=== PATIENT | female | born 1980 | race Two or more races ===

== ENCOUNTER 2019-05-03 12:39 | Inpatient (IN) | payer MEDICAID ==
[~2019-05-03] VITALS: Ht 165.1 cm; Wt 143.7 kg
[~2019-05-03 12:39] MED LIST: ALPR2TAB2 PO; APIX2.5T PO; CARI-277 PO; DOCU100T15 PO; ENAL10TA PO; FURO1TAB33 PO; HYDR-3547 PO; MORP30TA PO; SIMV-8 PO; WARF6TAB PO
[2019-05-03] MEDS ORDERED: IPRATROPIUM BROM 0.5 MG/2.5ML INH SOL HHN ONE (13:30)
[2019-05-03] MEDS ORDERED: methylPREDNISolone SOD SUCC 125 MG/2 ML VL IV ONE (13:30)
[2019-05-03] MEDS ORDERED: ALBUTEROL SULF 2.5 MG/0.5ML(0.5%) NEB SOLN HHN ONE (13:30)
[2019-05-03 13:33] LABS: Basophils # (auto) 0 uL; Basophils % (auto) 0.5 % (0.0-2.0); Eosinophils # (auto) 0 uL; Hematocrit 36.3 % (36.0-46.0); Hemoglobin 11.9 g/dL (12.2-16.2); Lymphocytes # (auto) 0.8 uL; Lymphocytes % (auto) 13.8 % (10.0-50.0); Mean Corpuscular Hemoglobin 29.3 pg (28.0-32.0); Mean Corpuscular Hgb Conc. 32.8 g/dL (32.0-36.0); Mean Corpuscular Volume 89.3 fL (80.0-100.0); Monocytes # (auto) 0.4 uL; Monocytes % (auto) 7.2 % (0.0-12.0); Neutrophils # (auto) 4.6 uL; Neutrophils % (auto) 78.5 % (37.0-80.0); Nucleated Red Blood Cells % 0.1 %; Platelet Count (auto) 206 10^3/uL (140-450); Red Blood Cells 4.06 10^6/uL (4.0-5.20); Red Cell Distribution Width 15.1 % (11.8-14.3); White Blood Cell 5.9 10^3/uL (4.4-10.8)
[2019-05-03] MEDS ORDERED: BISA-4 (13:34)
[2019-05-03] MEDS ORDERED: DOCU1CAP31 (13:34)
[2019-05-03] MEDS ORDERED: ZOLP10TA6 (13:34)
[2019-05-03] MEDS ORDERED: HYDR-531 (13:34)
[2019-05-03] MEDS ORDERED: IBUP800T24 (13:34)
[2019-05-03] MEDS ORDERED: FLUT110A (13:34)
[2019-05-03] MEDS ORDERED: CITA-77 (13:34)
[2019-05-03] MEDS ORDERED: APIX5TAB (13:34)
[2019-05-03] MEDS ORDERED: BACL10TA (13:34)
[2019-05-03] MEDS ORDERED: ENAL10TA2 (13:34)
[2019-05-03] MEDS ORDERED: FUR20T (13:34)
[2019-05-03] MEDS ORDERED: MORP1TAB12 (13:34)
[2019-05-03 14:09] LABS: Albumin 2.9 g/dL (3.4-5.0); Calcium 8.1 mg/dL (8.5-10.1); Potassium 3.6 mmol/L (3.5-5.1)
[2019-05-03 14:14] LABS: BUN/Creatinine Ratio 13.5; Bilirubin, Total 0.3 mg/dL (0.2-1.0); Total Protein 7.4 g/dL (6.4-8.2)
[2019-05-03] MEDS ORDERED: cefTRIAXone 1GM/50ML D5W 50 ML IV ONE (14:15)
[2019-05-03] MEDS: MAGNESIUM SULFATE 1GM/100ML 100 ML IV SCH ×2 (14:29→15:25)
[2019-05-03] MEDS ORDERED: FUROSEMIDE 40 MG/4 ML VIAL IV ONE (16:00)
[2019-05-03] MEDS ORDERED: NITROGLYCERIN 0.4 MG SL TAB SL PRN (17:00)
[2019-05-03] MEDS ORDERED: MORPHINE SULF INJ 2 MG/ML SYRINGE 1ML IV PRN (17:00)
[2019-05-03] MEDS ORDERED: HYDROcodone-ACET 10/325MG TAB PO PRN (17:00)
--- NOTE | 2019-05-03 18:05 | NUR ---
Telemetry admit from ER AVERY BARRON admitted to Telemetry unit after SBAR received. Patient oriented to primary RN, unit, room, bed, and unit policies regarding patient care and visiting hours. Patient now on continuous telemetry monitoring, tele box # 85 and telemetry reading on arrival to unit is sinus rhythm 91. Patient placed on bedside oxygen, weighed by bedscale and encouraged to call if they need something. All questions and concerns addressed, patient verbalized understanding.
--- NOTE | 2019-05-03 18:35 | NUR ---
Pain Patient complained of generalized body pain. Stated that her pain level is at 11. Patient stated that norco does not help her pain and is requesting IV morphine. States she takes morphine at home. Informed patient that she is having shortness of breath, with saturation at 97 on 10L of oxygen. Informed her that IV morphine can compromise her breathing more. Patient verbalize understanding.
[2019-05-03 18:36] VITALS: BP 107/74
[2019-05-03] MEDS: HYDROcodone-ACET 10/325MG TAB PO PRN (18:45)
--- NOTE | 2019-05-03 19:30 | NUR ---
Opening Shift Note Assumed care of patient, awake and alert. No S/S of distress/SOB or pain. Instructed on POC and to call for assist PRN, will continue to monitor for changes Q1hr and PRN.
[2019-05-03] MEDS: CARVEDILOL 3.125 MG TAB PO SCH ×2 (21:56→22:21)
[2019-05-03 22:00] VITALS: BP 121/58
--- NOTE | 2019-05-03 22:04 | NUR ---
PATIENT COMPLAINING OF CHEST TIGHTNESS AND DYSPNEA. HAD RT ASSESS PATIENT. PATIENT HAS FINE CRACKLES AND IS CURRENTLY ON SIMPLE MASK AT 10L. PATIENT RESPIRATIONS ARE 24 AND SHALLOW. RT SUGGESTING PRN BREATHING TREATMENT. WILL PAGE HOSPITALIST.
[2019-05-03] MEDS: APIXABAN 5 MG TAB PO SCH (22:21)
[2019-05-03] MEDS ORDERED: ALBUTEROL SULF 2.5 MG/0.5ML(0.5%) NEB SOLN NEB PRN (22:45)
--- NOTE | 2019-05-03 23:10 | NUR ---
Report given to KAYLYNN Elder.
--- NOTE | 2019-05-03 23:15 | NUR ---
Received report from KAYLYNN Olivarez. Assumed care of patient.
[2019-05-03] MEDS: BACLOFEN 10 MG TAB PO PRN (23:46)
[2019-05-04] VITALS (7 sets, daily range): BP systolic 101–115; BP diastolic 50–75
[2019-05-04] MEDS: HYDROcodone-ACET 10/325MG TAB PO PRN ×3 (03:10→20:12)
[2019-05-04] MEDS: FUROSEMIDE 40 MG/4 ML VIAL IV SCH ×2 (06:06→18:00)
[2019-05-04 06:32] LABS: Basophils # (auto) 0 uL; Basophils % (auto) 0.3 % (0.0-2.0); Eosinophils # (auto) 0 uL; Hematocrit 36.5 % (36.0-46.0); Hemoglobin 11.9 g/dL (12.2-16.2); Lymphocytes # (auto) 0.9 uL; Lymphocytes % (auto) 16.2 % (10.0-50.0); Mean Corpuscular Hemoglobin 29.3 pg (28.0-32.0); Mean Corpuscular Hgb Conc. 32.5 g/dL (32.0-36.0); Mean Corpuscular Volume 90.3 fL (80.0-100.0); Monocytes # (auto) 0.4 uL; Monocytes % (auto) 7.6 % (0.0-12.0); Neutrophils # (auto) 4.1 uL; Neutrophils % (auto) 75.9 % (37.0-80.0); Nucleated Red Blood Cells % 0.8 %; Platelet Count (auto) 217 10^3/uL (140-450); Red Blood Cells 4.04 10^6/uL (4.0-5.20); Red Cell Distribution Width 15.5 % (11.8-14.3); White Blood Cell 5.4 10^3/uL (4.4-10.8)
--- NOTE | 2019-05-04 06:52 | NUR ---
Closing note: Patient resting in bed with breath even and unlabored. No s/s of distress SOB noted. Patient on 10 Liters oxygen via mask. Will endorse care to day shift nurse.
--- NOTE | 2019-05-04 07:00 | NUR ---
Opening Shift Note Received report on the patient. Awake lying in bed. Patient shows no signs of distress at this time. Discussed the plan of care with the patient. Bed in lowest position, side rails up x2, and the call light is within reach. Will continue to monitor.
[2019-05-04 07:51] LABS: Albumin 2.9 g/dL (3.4-5.0); BUN/Creatinine Ratio 20.6; Bilirubin, Total 0.2 mg/dL (0.2-1.0); Calcium 8.5 mg/dL (8.5-10.1); Magnesium 2.2 mg/dL (1.6-2.6); Potassium 4.9 mmol/L (3.5-5.1); Total Protein 7.5 g/dL (6.4-8.2)
[2019-05-04] MEDS ORDERED: IOHEXOL 350 MG/ML 100ML IJ ONE (10:36)
[2019-05-04] MEDS: APIXABAN 5 MG TAB PO SCH ×2 (11:35→22:29)
[2019-05-04] MEDS: ENALAPRIL MALEATE 10 MG TAB PO SCH (11:36)
[2019-05-04] MEDS: CARVEDILOL 3.125 MG TAB PO SCH ×2 (11:36→18:00)
--- NOTE | 2019-05-04 13:50 | NUR ---
Pulmonary [place] Dr. Rivera called to let me know that the patient has a PE on the right side. Called Dr. Ely and left a message. Addendum: 05/04/19 at 1427 by MATTHIAS CERVANTES RN RN Pleural Effusion Dr. Rivera called to let me know that the patient has a PE on the right side. Called Dr. Ely and left a message.
--- NOTE | 2019-05-04 14:27 | NUR ---
Pleural Effusion Dr. Rivera called to let me know that the patient has a PE on the right side. Called Dr. Ely and left a message.
[2019-05-04] MEDS ORDERED: BUDESONIDE (INHALATION) 0.5 MG/2 ML NEB NEB ONE (18:00)
[2019-05-04] MEDS: ALBUTEROL SULF 2.5 MG/0.5ML(0.5%) NEB SOLN NEB SCH ×2 (19:27→22:22)
[2019-05-04] MEDS: IPRATROPIUM BROM 0.5 MG/2.5ML INH SOL NEB SCH ×2 (19:28→22:22)
--- NOTE | 2019-05-04 19:35 | NUR ---
Opening Shift Note Assumed care of patient, awake and alert. No S/S of distress/SOB noted. Instructed on POC and to call for assist PRN. Bed in lowest position, side rails up x2, and the call light is within reach. Instructed to use bed side commode and leave oxygen on.
[2019-05-04 21:00] LABS: Urine WBC None Seen /hpf (0 - 5)
[2019-05-04 21:11] LABS: Urine Bacteria NONE SEEN /hpf (None Seen); Urine Blood 3+ /uL (Negative)
[2019-05-04 21:12] LABS: Urine Specific Gravity > 1.050 (1.001-1.035)
[2019-05-04] MEDS: BUDESONIDE (INHALATION) 0.5 MG/2 ML NEB NEB SCH (22:21)
[2019-05-04] MEDS: methylPREDNISolone SOD SUCC 125 MG/2 ML VL IV SCH (22:29)
[2019-05-04] MEDS: BACLOFEN 10 MG TAB PO PRN (22:29)
[2019-05-05] MEDS: IPRATROPIUM BROM 0.5 MG/2.5ML INH SOL NEB SCH ×3 (02:17→10:17)
[2019-05-05] MEDS: ALBUTEROL SULF 2.5 MG/0.5ML(0.5%) NEB SOLN NEB SCH ×3 (02:17→10:17)
[2019-05-05 05:00] VITALS: BP 99/51
[2019-05-05 05:44] LABS: Basophils # (auto) 0 uL; Basophils % (auto) 0.2 % (0.0-2.0); Eosinophils # (auto) 0 uL; Eosinophils % (auto) 0.2 % (0.0-7.0); Hemoglobin 12.1 g/dL (12.2-16.2); Lymphocytes # (auto) 0.6 uL; Mean Corpuscular Hemoglobin 28.9 pg (28.0-32.0); Mean Corpuscular Hgb Conc. 31.9 g/dL (32.0-36.0); Mean Corpuscular Volume 90.8 fL (80.0-100.0); Monocytes # (auto) 0.2 uL; Monocytes % (auto) 3.7 % (0.0-12.0); Neutrophils # (auto) 5.6 uL; Neutrophils % (auto) 86.9 % (37.0-80.0); Nucleated Red Blood Cells % 0.1 %; Platelet Count (auto) 222 10^3/uL (140-450); Red Blood Cells 4.18 10^6/uL (4.0-5.20); Red Cell Distribution Width 15.9 % (11.8-14.3); White Blood Cell 6.4 10^3/uL (4.4-10.8)
[2019-05-05] MEDS: methylPREDNISolone SOD SUCC 125 MG/2 ML VL IV SCH (05:48)
[2019-05-05] MEDS: HYDROcodone-ACET 10/325MG TAB PO PRN (05:58)
[2019-05-05] MEDS: FUROSEMIDE 40 MG/4 ML VIAL IV SCH (06:06)
[2019-05-05 06:12] LABS: Potassium 4.9 mmol/L (3.5-5.1)
[2019-05-05 06:19] LABS: BUN/Creatinine Ratio 26.2; Bilirubin, Total 0.3 mg/dL (0.2-1.0); Calcium 8.3 mg/dL (8.5-10.1); Total Protein 7.6 g/dL (6.4-8.2)
[2019-05-05 09:00] VITALS: BP 121/73
[2019-05-05] MEDS: BUDESONIDE (INHALATION) 0.5 MG/2 ML NEB NEB SCH (10:16)
[2019-05-05] MEDS: ENALAPRIL MALEATE 10 MG TAB PO SCH (10:31)
[2019-05-05] MEDS: APIXABAN 5 MG TAB PO SCH (10:32)
[2019-05-05] MEDS: CARVEDILOL 3.125 MG TAB PO SCH (10:32)
--- NOTE | 2019-05-05 11:51 | NUR ---
AMA Patient left AMA because she did not feel like she was getting the care she needed. Patient states that "she needs a higher level of care so she is going to [place]". Patient ripped out her own IV, took the tele box off, refused to sign the AMA form, and threw it back at me. Charge nurse notified and Dr. Ely notified.
[2019-05-05] MEDS ORDERED: SILDENAFIL CITRATE 20 MG TAB PO SCH (14:00)
== END 2019-05-05 11:50 | disposition left against medical advice (07) | DRG 194 ==
LOC: EDBD 12:39 → ER 12:39 → TELE-WESTW 12:40
PROVIDERS: ADMIT Nurse Practitioner Acute Care; ATTEND Internal Medicine
DX: I11.0 Hypertensive heart disease with heart failure (principal); J96.01 Acute respiratory failure with hypoxia; E43 Unspecified severe protein-calorie malnutrition; I27.20 Pulmonary hypertension, unspecified; E66.01 Morbid (severe) obesity due to excess calories; E11.65 Type 2 diabetes mellitus with hyperglycemia; E83.42 Hypomagnesemia; I50.43 Acute on chronic combined systolic (congestive) and diastolic (congestive) heart failure; J44.1 Chronic obstructive pulmonary disease with (acute) exacerbation; R79.89 Other specified abnormal findings of blood chemistry; G47.30 Sleep apnea, unspecified; J45.901 Unspecified asthma with (acute) exacerbation; E78.5 Hyperlipidemia, unspecified; G89.4 Chronic pain syndrome; I27.24 Chronic thromboembolic pulmonary hypertension; J20.9 Acute bronchitis, unspecified; J44.0 Chronic obstructive pulmonary disease with (acute) lower respiratory infection; Z87.891 Personal history of nicotine dependence; Z91.19 Patient's noncompliance with other medical treatment and regimen; Z79.01 Long term (current) use of anticoagulants; Z79.899 Other long term (current) drug therapy; Z80.0 Family history of malignant neoplasm of digestive organs; Z82.49 Family history of ischemic heart disease and other diseases of the circulatory system; Z83.3 Family history of diabetes mellitus; Z86.711 Personal history of pulmonary embolism; Z99.81 Dependence on supplemental oxygen; F41.9 Anxiety disorder, unspecified; Z53.29 Procedure and treatment not carried out because of patient's decision for other reasons
CPT/HCPCS: 36415; 71045; 71275; 80053; 81001; 83605; 83735; 83880; 84484; 84702; 85025; 85379; 87040; 87081; 93005; 94640; 96374; G0378; J0696

== ENCOUNTER 2020-01-14 17:55 | Inpatient (IN) | payer MEDICAID ==
[~2020-01-14] VITALS: Ht 160 cm; Wt 140.0 kg
[~2020-01-14 17:55] MED LIST changes: +APIX5TAB; +BACL10TA; +BISA-4; +CITA-77; +DOCU1CAP31; -ENAL10TA PO; +ENAL10TA12 PO; +ENAL10TA13; +FLUT110A; +FUR20T; +HYDR-531; +IBUP800T24; +MORP1TAB12; -WARF6TAB PO; +WARF6TAB2 PO; +ZOLP10TA6
[2020-01-14] MEDS ORDERED: MORPHINE SULFATE 4 MG/ML SYR/VIAL IV ONE ×2 (19:00→23:30)
[2020-01-14] MEDS ORDERED: ENOXAPARIN SOD 100 MG/1 ML SYRINGE SC ONE (19:00)
[2020-01-14] MEDS ORDERED: ONDANSETRON HCL 4 MG/2 ML VIAL IV ONE ×2 (19:00→23:30)
[2020-01-14 19:03] LABS: Basophils # (auto) 0 10 ^3/uL (0-0.2); Basophils % (auto) 0.5 % (0.0-2.0); Eosinophils # (auto) 0.2 10 ^3/uL (0-0.8); Eosinophils % (auto) 2.3 % (0.0-7.0); Hematocrit 33.5 % (36.0-46.0); Hemoglobin 11.4 g/dL (12.2-16.2); Lymphocytes % (auto) 19.9 % (10.0-50.0); Mean Corpuscular Hgb Conc. 33.9 g/dL (32.0-36.0); Mean Corpuscular Volume 85.3 fL (80.0-100.0); Monocytes # (auto) 0.4 10 ^3/uL (0-1.3); Monocytes % (auto) 4.3 % (0.0-12.0); Neutrophils # (auto) 7.4 10 ^3/uL (1.6-8.6); Platelet Count (auto) 340 10^3/uL (140-450); Red Blood Cells 3.92 10^6/uL (4.0-5.20); Red Cell Distribution Width 14.9 % (11.8-14.3); White Blood Cell 10.1 10^3/uL (4.4-10.8)
[2020-01-14 19:30] LABS: Albumin 3.1 g/dL (3.4-5.0); Anion Gap 5 (5-15); BUN/Creatinine Ratio 8.6; Blood Urea Nitrogen 8 mg/dL (7-18); Calcium 8.7 mg/dL (8.5-10.1); Carbon Dioxide 32 mmol/L (21-32); Chloride 98 mmol/L (98-107); GFR African American 87 mL/min; GFR Non-African American 72 mL/min; Glucose 169 mg/dL (74-106); Potassium 3.7 mmol/L (3.5-5.1); Sodium 135 mmol/L (136-145)
[2020-01-14 19:35] LABS: Alanine Aminotransferase 38 U/L (13-56); Alkaline Phosphatase 135 U/L (45-117); Aspartate Aminotransferase 40 U/L (15-37); Bilirubin, Total 0.2 mg/dL (0.2-1.0); Total Protein 7.8 g/dL (6.4-8.2)
[2020-01-14] MEDS ORDERED: IOHEXOL 350 MG/ML 100ML IJ ONE (20:53)
[2020-01-15] MEDS ORDERED: ONDANSETRON HCL 4 MG/2 ML VIAL IV ONE (04:15)
[2020-01-15] MEDS ORDERED: MORPHINE SULFATE 4 MG/ML SYR/VIAL IV ONE (04:15)
[2020-01-15] MEDS ORDERED: TEMAZEPAM 15 MG CAP PO PRN (05:45)
[2020-01-15] MEDS ORDERED: ACETAMINOPHEN 325 MG TAB PO PRN (05:45)
[2020-01-15] MEDS ORDERED: ALBUTEROL SULF 2.5 MG/0.5ML(0.5%) NEB SOLN NEB PRN (06:15)
[2020-01-15 06:18] LABS: Basophils # (auto) 0.1 10 ^3/uL (0-0.2); Basophils % (auto) 0.5 % (0.0-2.0); Eosinophils # (auto) 0.3 10 ^3/uL (0-0.8); Eosinophils % (auto) 3.3 % (0.0-7.0); Hematocrit 32.4 % (36.0-46.0); Hemoglobin 10.8 g/dL (12.2-16.2); Lymphocytes # (auto) 2.2 10 ^3/uL (0.4-5.4); Lymphocytes % (auto) 22.6 % (10.0-50.0); Mean Corpuscular Hemoglobin 28.7 pg (28.0-32.0); Mean Corpuscular Hgb Conc. 33.3 g/dL (32.0-36.0); Mean Corpuscular Volume 86.4 fL (80.0-100.0); Monocytes # (auto) 0.5 10 ^3/uL (0-1.3); Monocytes % (auto) 4.9 % (0.0-12.0); Neutrophils # (auto) 6.6 10 ^3/uL (1.6-8.6); Neutrophils % (auto) 68.7 % (37.0-80.0); Nucleated Red Blood Cells % 0.2 %; Platelet Count (auto) 297 10^3/uL (140-450); Red Blood Cells 3.75 10^6/uL (4.0-5.20); Red Cell Distribution Width 14.9 % (11.8-14.3); White Blood Cell 9.6 10^3/uL (4.4-10.8)
[2020-01-15 06:22] LABS: INR 0.96 (0.9-1.15); Partial Thromboplastin Time 27.9 sec (23.0-31.2)
[2020-01-15 06:30] LABS: Potassium 3.9 mmol/L (3.5-5.1)
[2020-01-15 06:39] LABS: BUN/Creatinine Ratio 10.6; Bilirubin, Total 0.2 mg/dL (0.2-1.0); Calcium 8.3 mg/dL (8.5-10.1); Total Protein 7.1 g/dL (6.4-8.2)
[2020-01-15] MEDS: SODIUM CHLORIDE 0.9% 1,000 ML IV SCH (07:00)
[2020-01-15] MEDS ORDERED: APIXABAN 5 MG TAB PO ONE (07:00)
[2020-01-15] MEDS: MORPHINE SULF INJ 2 MG/ML SYRINGE 1ML IV PRN ×5 (07:02→23:39)
[2020-01-15] MEDS: ONDANSETRON HCL 4 MG/2 ML VIAL IV PRN ×2 (07:03→11:19)
[2020-01-15] MEDS: HYDROcodone-ACET 5/325MG TAB PO PRN (08:50)
[2020-01-15 09:58] VITALS: BP 104/52
[2020-01-15] MEDS ORDERED: ENOXAPARIN SOD 100 MG/1 ML SYRINGE SC SCH (10:00)
[2020-01-15] MEDS ORDERED: APIXABAN 5 MG TAB PO SCH ×2 (10:00→22:00)
[2020-01-15 14:05] VITALS: BP 143/88
--- NOTE | 2020-01-15 14:05 | NUR ---
Telemetry admit from ER JUVE BARRONDY admitted to Telemetry unit after SBAR received. Patient oriented to WILDA CHENG, RN primary RN, unit, room, bed, and unit policies regarding patient care and visiting hours. Patient sent up without tele monitor, per ophthalmology technician, monitor will be sent up [place]. Patient placed on bedside oxygen, weighed by bedscale and encouraged to call if they need something. All questions and concerns addressed, patient verbalized understanding. VS: 98.3, 86, 18, 91%, 143/88. Patient report pain 8/10, per patient, she wants to wait for Morphine when it is due. Will continue to monitor.
--- NOTE | 2020-01-15 15:30 | NUR ---
Received tele box, # 46, and placed on patient.
--- NOTE | 2020-01-15 16:40 | NUR ---
Dr Mcfarlane (Cardiology) on unit r
[2020-01-15 17:00] VITALS: BP 139/85
[2020-01-15] MEDS ORDERED: WARFARIN SODIUM 10 MG TAB PO ONE (17:00)
[2020-01-15] MEDS ORDERED: TIZA4TAB9 PO (18:41)
[2020-01-15] MEDS ORDERED: GLIP5TAB12 PO (18:41)
[2020-01-15] MEDS ORDERED: METF-370 PO (18:41)
--- NOTE | 2020-01-15 19:10 | NUR ---
Opening Shift Note Assumed care of patient from day shift RN, patient awake and alert oriented x4. No S/S of distress/SOB or pain. Instructed on POC and to call for assist PRN, safety measures in place call light with in reach, side rails up x2, and bed in lowest position. will continue to monitor for changes Q1hr and PRN.
[2020-01-15] MEDS ORDERED: MORPHINE SULF INJ 2 MG/ML SYRINGE 1ML ONE (19:38)
[2020-01-15 20:00] VITALS: BP 128/70
--- NOTE | 2020-01-15 20:10 | NUR ---
Paged Dr. Boo for diabetic orders.
--- NOTE | 2020-01-15 20:15 | NUR ---
Received orders from Dr. Boo for Glipizide 5mg x1 now and for moderate sliding scale and blood sugar checks ac and hs. Dr. Boo stated no metformin at this time. Read back and verified orders.
[2020-01-15] MEDS ORDERED: glipiZIDE 5 MG TAB PO ONE (20:30)
[2020-01-15] MEDS ORDERED: DEXTROSE (50%) 50ML SYRG IV PRN (20:30)
[2020-01-15] MEDS: LORazepam 0.5 MG TAB PO PRN (20:42)
[2020-01-15] MEDS: InsuLIN REG 1unit/0.01ml Soln (100units/ml) SC SCH (21:35)
[2020-01-15 22:00] VITALS: BP 128/70
[2020-01-15] MEDS: ACCU-CHEK COMFORT CURVE STRIP VI SCH (22:00)
--- NOTE | 2020-01-15 22:50 | NUR ---
AT BEDSIDE TO ASSESS PT FOR PRN TX. BS ARE FINE EXPIRATORY WHEEZES T/O. SUGGESTED NEED FOR MED NEB TX PT AGREED TO TAKE. POX 993-94% ON 3LPM, RR 22-24. PT AWARE I CAN BE PAGED AT ANY TIME SHE IS EXPERIENCING ANY DIFFICULTY WITH HER BREATHING. RT NAME AND PAGER ASSIGNMENT WRITTEN ON PTS ROOM BOARD. WILL CONTINUE TO MONITOR.
[2020-01-16] MEDS: MORPHINE SULF INJ 2 MG/ML SYRINGE 1ML IV PRN ×4 (03:55→23:18)
[2020-01-16] MEDS: SODIUM CHLORIDE 0.9% 1,000 ML IV SCH ×2 (03:56→15:05)
[2020-01-16 05:00] VITALS: BP 124/74
[2020-01-16] MEDS: ACCU-CHEK COMFORT CURVE STRIP VI SCH ×4 (06:15→21:49)
[2020-01-16] MEDS: InsuLIN REG 1unit/0.01ml Soln (100units/ml) SC SCH ×4 (06:16→21:54)
[2020-01-16 06:53] LABS: Basophils # (auto) 0 10 ^3/uL (0-0.2); Basophils % (auto) 0.3 % (0.0-2.0); Eosinophils # (auto) 0.3 10 ^3/uL (0-0.8); Hematocrit 32.5 % (36.0-46.0); Hemoglobin 10.7 g/dL (12.2-16.2); Lymphocytes # (auto) 1.7 10 ^3/uL (0.4-5.4); Lymphocytes % (auto) 20.5 % (10.0-50.0); Mean Corpuscular Hemoglobin 28.2 pg (28.0-32.0); Mean Corpuscular Volume 85.3 fL (80.0-100.0); Monocytes # (auto) 0.4 10 ^3/uL (0-1.3); Monocytes % (auto) 4.8 % (0.0-12.0); Neutrophils % (auto) 71.4 % (37.0-80.0); Nucleated Red Blood Cells % 0.1 %; Platelet Count (auto) 267 10^3/uL (140-450); Red Blood Cells 3.81 10^6/uL (4.0-5.20); Red Cell Distribution Width 14.7 % (11.8-14.3); White Blood Cell 8.4 10^3/uL (4.4-10.8)
[2020-01-16 07:05] LABS: INR 0.96 (0.9-1.15)
[2020-01-16 09:00] VITALS: BP 125/77
[2020-01-16] MEDS: HYDROcodone-ACET 5/325MG TAB PO PRN ×3 (09:40→20:19)
[2020-01-16] MEDS: DOCUSATE SOD 100 MG CAP PO PRN (09:49)
--- NOTE | 2020-01-16 11:45 | NUR ---
Respiratory note: PT FOUND ON ROOM AIR SP02 92%, HR 90 RR 22. B/S ARE DIMINISHED/CLEAR. PT IN NO DISTRESS AT THIS TIME. PT HAS NO COMPLAINT OF SOB. PT AWARE TO HAVE RT PAGED IF BECOMES SOB.
[2020-01-16] MEDS: LORazepam 0.5 MG TAB PO PRN ×2 (12:43→21:48)
[2020-01-16 13:00] VITALS: BP 136/83
--- NOTE | 2020-01-16 14:24 | NUR ---
unable to control pt's pain. back pain has been 10/10, with chest pain while deep breathing 8/10. po narco given, with no relief, iv morphine given, reaccessed pain pt stated 0/10, then told DIRECTOR TRAFFIC AND PLANNING her pain was not controlled. pt called for medication entered room pt to access, reason, pt was laughing et talking on cell phone with her daughter. requested Ativan because she stated she felt sob et anxious, sao2 97%, no distress noted. pt requested AMA information to sign to go outside, educated pt against leaving, but pt refused et signed the paper et ambulated outside independently. came back in pt sob with exertion. back to room where she rested et caught her breath, sao2 97%. resting. refused IV fld. all lobes clear. c/o constipation Colace given per request. Ativan given. offers no other needs.
[2020-01-16 17:00] VITALS: BP 127/76
[2020-01-16] MEDS ORDERED: WARFARIN SODIUM 10 MG TAB PO ONE (17:00)
--- NOTE | 2020-01-16 19:30 | NUR ---
Opening Shift Note Assumed care of patient, awake and alert. No S/S of distress/SOB or pain. Instructed on POC and to call for assist PRN, will continue to monitor for changes Q1hr and PRN. bed in low position and call light within reach.
[2020-01-16] MEDS: ENOXAPARIN SOD 150 MG/1 ML SYRINGE SC SCH (21:49)
[2020-01-16 22:00] VITALS: BP 143/88
--- NOTE | 2020-01-16 22:25 | NUR ---
Respiratory note: PT SEEN AND ASSESSED FOR PRN MED NEB TX AT 2225. TX NOT INDICATED AT THIS TIME. PT DENIES ANY RESPIRATORY DISTRESS. HR 78 RR 18 SP02 97% ON ROOM AIR.
[2020-01-17] MEDS: MORPHINE SULF INJ 2 MG/ML SYRINGE 1ML IV PRN ×4 (04:30→20:35)
[2020-01-17 06:00] VITALS: BP 138/81
[2020-01-17 06:02] LABS: Basophils # (auto) 0 10 ^3/uL (0-0.2); Basophils % (auto) 0.3 % (0.0-2.0); Eosinophils # (auto) 0.2 10 ^3/uL (0-0.8); Hematocrit 33.3 % (36.0-46.0); Lymphocytes # (auto) 1.6 10 ^3/uL (0.4-5.4); Mean Corpuscular Hemoglobin 28.4 pg (28.0-32.0); Mean Corpuscular Hgb Conc. 33.2 g/dL (32.0-36.0); Mean Corpuscular Volume 85.6 fL (80.0-100.0); Monocytes # (auto) 0.4 10 ^3/uL (0-1.3); Monocytes % (auto) 5.1 % (0.0-12.0); Neutrophils # (auto) 5.8 10 ^3/uL (1.6-8.6); Neutrophils % (auto) 71.6 % (37.0-80.0); Nucleated Red Blood Cells % 0.1 %; Platelet Count (auto) 267 10^3/uL (140-450); Red Blood Cells 3.89 10^6/uL (4.0-5.20); Red Cell Distribution Width 14.9 % (11.8-14.3); White Blood Cell 8.1 10^3/uL (4.4-10.8)
[2020-01-17 06:14] LABS: INR 1.15 (0.9-1.15); Partial Thromboplastin Time 31.6 sec (23.0-31.2); Potassium 4.2 mmol/L (3.5-5.1)
[2020-01-17 06:21] LABS: Albumin 2.9 g/dL (3.4-5.0); Bilirubin, Total 0.2 mg/dL (0.2-1.0); Calcium 8.8 mg/dL (8.5-10.1); Total Protein 7.3 g/dL (6.4-8.2)
[2020-01-17] MEDS: ACCU-CHEK COMFORT CURVE STRIP VI SCH ×4 (06:25→21:20)
[2020-01-17] MEDS: InsuLIN REG 1unit/0.01ml Soln (100units/ml) SC SCH ×4 (06:25→21:40)
[2020-01-17] MEDS: HYDROcodone-ACET 5/325MG TAB PO PRN ×3 (06:57→21:37)
--- NOTE | 2020-01-17 07:03 | NUR ---
report given to dayshift rn patient denies sob distress or pain
--- NOTE | 2020-01-17 07:30 | NUR ---
RECEIVED REPORT FROM NIGHT NURSE. PATIENT RESTING IN BED, NO DISTRESS NOTED. WILL CONTINUE TO MONITOR.
[2020-01-17] MEDS: SODIUM CHLORIDE 0.9% 1,000 ML IV SCH (07:45)
[2020-01-17 09:00] VITALS: BP 131/92
--- NOTE | 2020-01-17 09:00 | NUR ---
Respiratory note: ASSESSED PT FOR PRN TX , PT WAS AWAKE AND ALERT NO RESP DISTRESS NOTED. PT WAS COMPLAINING OF A HEADACHE, RN AT BEDSIDE. HR 91, RR 18, SPO2 95% ON 3L N/C. BS ARE CLEAR AND DIMINISHED, NO INDICATION FOR TX AT THIS TIME. PT KNOWS TO HAVE RT PAGED IF TX IS NEEDED.
[2020-01-17] MEDS: ENOXAPARIN SOD 150 MG/1 ML SYRINGE SC SCH ×2 (09:56→21:19)
[2020-01-17] MEDS: DOCUSATE SOD 100 MG CAP PO PRN ×2 (09:57→21:19)
[2020-01-17] MEDS: LORazepam 0.5 MG TAB PO PRN (09:57)
--- NOTE | 2020-01-17 12:38 | NUR ---
Nutrition Assessment Note: please see attached link for complete assessment [employer] needs ABW 92 [id number] kcals (17-20 kcal/kgABW), Est Protein needs:102-112 gms/day (1.0-1.1 gm/kgABW). Will continue to monitor and reassess prn. Addendum: 01/17/20 at [address] Amended: Links added.
[2020-01-17 13:00] VITALS: BP 140/89
[2020-01-17 16:40] VITALS: BP 147/88
[2020-01-17] MEDS ORDERED: WARFARIN SODIUM 10 MG TAB PO ONE (17:00)
--- NOTE | 2020-01-17 18:23 | NUR ---
OFF UNIT PATIENT SIGNED AMA TO SMOKE/ GO OFF UNIT. PATIENT HAS IMPORTANT MATTERS TO SPEAK WITH FAMILY IN PERSON ABOUT. PATIENT OFF UNIT.
--- NOTE | 2020-01-17 19:00 | NUR ---
Opening Shift Note Assumed care of patient, awake and alert. No S/S of distress/SOB or pain. Instructed on POC and to call for assist PRN, will continue to monitor for changes Q1hr and PRN. Bed in low position and call light within reach.
[2020-01-17 22:00] VITALS: BP 136/66
--- NOTE | 2020-01-17 23:01 | NUR ---
Telemonitor stickers reapplied as they became detached. Patient denies sob distress or pain.
[2020-01-18] MEDS: SODIUM CHLORIDE 0.9% 1,000 ML IV SCH (00:25)
[2020-01-18] MEDS: LORazepam 0.5 MG TAB PO PRN ×2 (00:36→11:45)
[2020-01-18] MEDS: MORPHINE SULF INJ 2 MG/ML SYRINGE 1ML IV PRN ×2 (01:40→08:32)
[2020-01-18] MEDS: HYDROcodone-ACET 5/325MG TAB PO PRN ×3 (03:37→19:59)
[2020-01-18 05:09] VITALS: BP 126/77
[2020-01-18 05:12] LABS: Basophils # (auto) 0.1 10 ^3/uL (0-0.2); Basophils % (auto) 0.6 % (0.0-2.0); Eosinophils # (auto) 0.3 10 ^3/uL (0-0.8); Hematocrit 33.6 % (36.0-46.0); Hemoglobin 11.1 g/dL (12.2-16.2); Lymphocytes # (auto) 1.8 10 ^3/uL (0.4-5.4); Lymphocytes % (auto) 20.8 % (10.0-50.0); Mean Corpuscular Hemoglobin 28.5 pg (28.0-32.0); Mean Corpuscular Hgb Conc. 33.1 g/dL (32.0-36.0); Mean Corpuscular Volume 86.1 fL (80.0-100.0); Monocytes # (auto) 0.4 10 ^3/uL (0-1.3); Neutrophils % (auto) 70.6 % (37.0-80.0); Nucleated Red Blood Cells % 0.1 %; Platelet Count (auto) 286 10^3/uL (140-450); Red Cell Distribution Width 14.7 % (11.8-14.3); White Blood Cell 8.5 10^3/uL (4.4-10.8)
[2020-01-18 05:30] LABS: INR 1.51 (0.9-1.15)
[2020-01-18 05:33] LABS: Albumin 2.9 g/dL (3.4-5.0); Anion Gap 2 (5-15); Blood Urea Nitrogen 9 mg/dL (7-18); Calcium 8.7 mg/dL (8.5-10.1); Carbon Dioxide 34 mmol/L (21-32); Chloride 99 mmol/L (98-107); Glucose 256 mg/dL (74-106); Magnesium 2.1 mg/dL (1.6-2.6); Sodium 135 mmol/L (136-145)
[2020-01-18 05:37] LABS: Alanine Aminotransferase 41 U/L (13-56); Alkaline Phosphatase 120 U/L (45-117); Aspartate Aminotransferase 40 U/L (15-37); BUN/Creatinine Ratio 12.7; Bilirubin, Total < 0.1 mg/dL (0.2-1.0); GFR African American 118 mL/min; GFR Non-African American 98 mL/min; Total Protein 7.2 g/dL (6.4-8.2)
[2020-01-18] MEDS: InsuLIN REG 1unit/0.01ml Soln (100units/ml) SC SCH ×4 (06:25→21:55)
[2020-01-18] MEDS: ACCU-CHEK COMFORT CURVE STRIP VI SCH ×4 (06:25→21:21)
--- NOTE | 2020-01-18 07:00 | NUR ---
REPORT GIVEN TO DAYSHIFT RN PATIENT DENIES SOB DISTRESS OR PAIN
--- NOTE | 2020-01-18 07:30 | NUR ---
RECEIVED REPORT FROM NIGHT NURSE. PATIENT RESTING IN BED, NO DISTRESS NOTED. WILL CONTINUE TO MONITOR.
[2020-01-18 09:00] VITALS: BP 142/80
[2020-01-18] MEDS: ENOXAPARIN SOD 150 MG/1 ML SYRINGE SC SCH ×2 (10:13→21:21)
[2020-01-18 13:00] VITALS: BP 128/67
--- NOTE | 2020-01-18 14:03 | NUR ---
assessment Patient has no post discharge needs identified at this time. Addendum: 01/18/20 at 1403 by Mildred OLIVIA Amended: Links added.
[2020-01-18] MEDS: HYDROmorphone HCL 2 MG/ML VL IV PRN (16:20)
[2020-01-18 17:00] VITALS: BP 142/59
[2020-01-18] MEDS ORDERED: WARFARIN SODIUM 1 MG TAB PO ONE (17:00)
[2020-01-18 22:00] VITALS: BP 141/89
[2020-01-19] MEDS: HYDROmorphone HCL 2 MG/ML VL IV PRN ×3 (00:14→17:28)
[2020-01-19] MEDS: HYDROcodone-ACET 5/325MG TAB PO PRN ×3 (02:05→20:19)
[2020-01-19 05:00] VITALS: BP 115/63
[2020-01-19] MEDS: ACCU-CHEK COMFORT CURVE STRIP VI SCH ×4 (06:17→21:55)
[2020-01-19] MEDS: InsuLIN REG 1unit/0.01ml Soln (100units/ml) SC SCH ×4 (06:21→22:07)
[2020-01-19 06:51] LABS: Basophils # (auto) 0.1 10 ^3/uL (0-0.2); Basophils % (auto) 0.8 % (0.0-2.0); Eosinophils # (auto) 0.3 10 ^3/uL (0-0.8); Eosinophils % (auto) 3.2 % (0.0-7.0); Hematocrit 33.7 % (36.0-46.0); Hemoglobin 11.2 g/dL (12.2-16.2); Lymphocytes # (auto) 2.1 10 ^3/uL (0.4-5.4); Lymphocytes % (auto) 24.7 % (10.0-50.0); Mean Corpuscular Hemoglobin 28.2 pg (28.0-32.0); Mean Corpuscular Hgb Conc. 33.1 g/dL (32.0-36.0); Mean Corpuscular Volume 85.3 fL (80.0-100.0); Monocytes # (auto) 0.4 10 ^3/uL (0-1.3); Monocytes % (auto) 5.2 % (0.0-12.0); Neutrophils # (auto) 5.6 10 ^3/uL (1.6-8.6); Neutrophils % (auto) 66.1 % (37.0-80.0); Nucleated Red Blood Cells % 0.1 %; Platelet Count (auto) 289 10^3/uL (140-450); Red Blood Cells 3.96 10^6/uL (4.0-5.20); Red Cell Distribution Width 14.8 % (11.8-14.3); White Blood Cell 8.5 10^3/uL (4.4-10.8)
[2020-01-19 07:03] LABS: INR 1.34 (0.9-1.15)
[2020-01-19 07:08] LABS: Albumin 2.9 g/dL (3.4-5.0); Calcium 8.4 mg/dL (8.5-10.1); Potassium 4.1 mmol/L (3.5-5.1)
[2020-01-19 07:10] LABS: BUN/Creatinine Ratio 13.5
[2020-01-19 07:13] LABS: Bilirubin, Total 0.2 mg/dL (0.2-1.0); Total Protein 7.3 g/dL (6.4-8.2)
[2020-01-19 08:00] VITALS: BP 131/77
[2020-01-19] MEDS: ENOXAPARIN SOD 150 MG/1 ML SYRINGE SC SCH ×2 (09:30→21:52)
[2020-01-19 09:54] VITALS: BP 131/77
[2020-01-19] MEDS ORDERED: INFLUENZA QUAD 2020-2021 0.5 ML SYRG IM ONE (16:00)
[2020-01-19 17:00] VITALS: BP 153/99
[2020-01-19] MEDS ORDERED: WARFARIN SODIUM 10 MG TAB PO ONE (17:00)
[2020-01-19 18:16] VITALS: BP 104/68
[2020-01-19] MEDS: LORazepam 0.5 MG TAB PO PRN (20:33)
[2020-01-19 22:00] VITALS: BP 134/93
[2020-01-20] MEDS: HYDROmorphone HCL 2 MG/ML VL IV PRN ×3 (01:51→16:16)
[2020-01-20] MEDS: HYDROcodone-ACET 5/325MG TAB PO PRN ×3 (04:25→19:51)
[2020-01-20 05:00] VITALS: BP 122/61
[2020-01-20 05:59] LABS: INR 1.25 (0.9-1.15)
[2020-01-20] MEDS: ACCU-CHEK COMFORT CURVE STRIP VI SCH ×4 (06:36→22:30)
[2020-01-20] MEDS: InsuLIN REG 1unit/0.01ml Soln (100units/ml) SC SCH ×4 (06:37→22:00)
--- NOTE | 2020-01-20 07:30 | NUR ---
Opening Shift Note Assumed patient care from NOC RN. Patient currently sitting up in bed, no signs of distress at this time. Respirations even and unlabored on 3L nasal cannula. Will continue to monitor q1hr and PRN.
[2020-01-20 09:00] VITALS: BP 110/63
[2020-01-20] MEDS: ENOXAPARIN SOD 150 MG/1 ML SYRINGE SC SCH ×2 (09:06→22:35)
--- NOTE | 2020-01-20 11:49 | NUR ---
Nutrition Followup Note Wt 139.6kg Pt was alert and oriented at time of rounds. Pt reports appetite is good, denies any GI issues. Consider changing diet to CCHO 60g d/t to pt is diabetic. Pt with a Cardiac 2g Na diet with 100% po x 3 days per RN note [employer] needs ABW 92 [id number] kcals (17-20 kcal/kgABW), Est Protein needs:102-112 gms/day (1.0-1.1 gm/kgABW). Will continue to monitor and reassess prn. Labs: GLUC 218H, Creat 0.52L, Ca 8.4L, Alb 2.9L BM: Pt with 1 BM 01/17 per Rn note Skin: Bs 21 low risk, full details in intensive care specialist note PES: Altered nutrition related lab values r.t current chronic medical condition aeb hyperglycemia, elev A1C mod hypoalb Decreased nutrient needs r/t adiposity aeb pt`s high BMI of 51.5 kgm2 Comments 1) refer to CDE on DC 2) consider CCHO 60 gm along wioth current diet 3) continue current plan of care Expected Outcomes/Goals: pt will have improved labs pt will not gain any more wt F/u mod 3-5 days
[2020-01-20 13:00] VITALS: BP 117/76
[2020-01-20] MEDS: DOCUSATE SOD 100 MG CAP PO PRN (13:00)
[2020-01-20 17:00] VITALS: BP 139/87
[2020-01-20] MEDS ORDERED: WARFARIN SODIUM 10 MG TAB PO ONE (17:00)
[2020-01-20] MEDS: LORazepam 0.5 MG TAB PO PRN (18:04)
[2020-01-20 22:46] VITALS: BP 154/95
[2020-01-21] MEDS: HYDROmorphone HCL 2 MG/ML VL IV PRN ×2 (00:25→08:37)
[2020-01-21] MEDS: HYDROcodone-ACET 5/325MG TAB PO PRN ×2 (03:15→09:53)
[2020-01-21 05:34] VITALS: BP 115/65
[2020-01-21 06:17] LABS: INR 1.39 (0.9-1.15)
[2020-01-21 06:35] LABS: Basophils # (auto) 0 10 ^3/uL (0-0.2); Basophils % (auto) 0.3 % (0.0-2.0); Eosinophils # (auto) 0.2 10 ^3/uL (0-0.8); Hematocrit 33.9 % (36.0-46.0); Mean Corpuscular Hemoglobin 27.7 pg (28.0-32.0); Mean Corpuscular Hgb Conc. 32.5 g/dL (32.0-36.0); Mean Corpuscular Volume 85.2 fL (80.0-100.0); Monocytes # (auto) 0.5 10 ^3/uL (0-1.3); Monocytes % (auto) 6.7 % (0.0-12.0); Neutrophils # (auto) 5.5 10 ^3/uL (1.6-8.6); Nucleated Red Blood Cells % 0.1 %; Platelet Count (auto) 308 10^3/uL (140-450); Red Blood Cells 3.98 10^6/uL (4.0-5.20); Red Cell Distribution Width 14.7 % (11.8-14.3); White Blood Cell 8.3 10^3/uL (4.4-10.8)
[2020-01-21] MEDS: ACCU-CHEK COMFORT CURVE STRIP VI SCH ×2 (06:47→11:39)
[2020-01-21] MEDS: InsuLIN REG 1unit/0.01ml Soln (100units/ml) SC SCH ×2 (06:47→11:50)
--- NOTE | 2020-01-21 07:30 | NUR ---
Opening Shift Note Assumed patient care from NOC RN. Patient currently laying on right side, respirations even and unlabored. No signs of distress at this time. Will continue to monitor q1hr and PRN.
[2020-01-21] MEDS: DOCUSATE SOD 100 MG CAP PO PRN (08:42)
[2020-01-21] MEDS: ENOXAPARIN SOD 150 MG/1 ML SYRINGE SC SCH (08:42)
[2020-01-21 08:44] VITALS: BP 137/76
--- NOTE | 2020-01-21 10:00 | NUR ---
New IV New IV started on left wrist, 20g. Blood return noted, flushes easily. Catheter secured. Patient tolerated well, denies pain at site. Will continue to monitor q1hr and PRN.
[2020-01-21] MEDS: LORazepam 0.5 MG TAB PO PRN (11:50)
[2020-01-21 13:00] VITALS: BP 103/55
--- NOTE | 2020-01-21 15:25 | NUR ---
at Station Dr. Mcfarlane at station. Per MD, continue with plan of care at this time.
--- NOTE | 2020-01-21 15:30 | NUR ---
at Bedside Dr. Guzman at bedside discussing plan of care with patient. Per MD, patient to be discharged today. New prescription received.
--- NOTE | 2020-01-21 15:45 | NUR ---
Paged SS Paged information management specialist social services director.
--- NOTE | 2020-01-21 15:50 | NUR ---
Room Air Assessed patient on room air. RR 24, SpO2 90-95% on room air. No signs of distress at this time. Respirations even and unlabored. MD aware.
[2020-01-21 16:17] VITALS: BP 103/55
[2020-01-21 16:29] VITALS: BP 114/73
--- NOTE | 2020-01-21 16:48 | NUR ---
Discharge Discharge instructions given as ordered. Encourage to follow up with PMD as instructed. All questions and concerns addressed. Patient verbalized understanding. Medication reconciliation form completed and copy given to patient. IV removed with catheter intact, pressure dressing applied. Telemetry unit returned to ICU. Patient ambulated vehicle with all personal belongings. No distress noted at time of departure. Paged SS organic preparation analyst regarding HH Safety Evaluation, no answer at this time. Will leave form ready for SS. Patient given prescriptions and discharge instructions.-instructed to follow up with primary Md and pulmonology-verbalized understanding. Patient denies shortness of breath at this time. No signs of distress at time of departure.
[2020-01-21] MEDS ORDERED: WARFARIN SODIUM 10 MG TAB PO ONE (17:00)
--- NOTE | 2020-01-21 17:06 | NUR ---
Home Safety Eval Paged SS, no call back at this time. Placed needed forms in director social service office. sole splitter, Sangeeta rodriguez.
[2020-01-22] MEDS ORDERED: APIXABAN 5 MG TAB PO SCH (10:00)
== END 2020-01-21 16:48 | disposition home or self-care (01) | DRG 134 ==
LOC: ER 17:56 → TELE 17:57 → TELE-CENTR 01-15 14:03
PROVIDERS: ADMIT Hospitalist; ATTEND Internal Medicine
DX: I26.99 Other pulmonary embolism without acute cor pulmonale (principal); J96.20 Acute and chronic respiratory failure, unspecified whether with hypoxia or hypercapnia; E11.9 Type 2 diabetes mellitus without complications; E66.01 Morbid (severe) obesity due to excess calories; J44.9 Chronic obstructive pulmonary disease, unspecified; J45.901 Unspecified asthma with (acute) exacerbation; Z68.43 Body mass index [BMI] 50.0-59.9, adult; E78.5 Hyperlipidemia, unspecified; G89.4 Chronic pain syndrome; I27.21 Secondary pulmonary arterial hypertension; I37.1 Nonrheumatic pulmonary valve insufficiency; I45.10 Unspecified right bundle-branch block; Z79.01 Long term (current) use of anticoagulants; Z79.899 Other long term (current) drug therapy; Z80.0 Family history of malignant neoplasm of digestive organs; Z81.8 Family history of other mental and behavioral disorders; Z82.49 Family history of ischemic heart disease and other diseases of the circulatory system; Z83.3 Family history of diabetes mellitus; Z86.711 Personal history of pulmonary embolism; Z91.19 Patient's noncompliance with other medical treatment and regimen; F41.9 Anxiety disorder, unspecified; G47.33 Obstructive sleep apnea (adult) (pediatric); Z20.828 Contact with and (suspected) exposure to other viral communicable diseases; D68.69 Other thrombophilia; I10 Essential (primary) hypertension
CPT/HCPCS: 36415; 71045; 71275; 80053; 82962; 83036; 83735; 83880; 84484; 85025; 85379; 85610; 85730; 87426; 93005; 93306; 93970; 94640; 96361; 96372; 96374; 96375; 96376; G0378; J1815; J2405

== ENCOUNTER 2020-07-24 16:16 | Inpatient (IN) | payer MEDICAID ==
[~2020-07-24] VITALS: Ht 160 cm; Wt 131.9 kg
[~2020-07-24 16:16] MED LIST changes: -APIX5TAB; -BACL10TA; -BISA-4; -CITA-77; -DOCU1CAP31; -ENAL10TA13; -FUR20T; +GLIP5TAB12 PO; -HYDR-3547 PO; -IBUP800T24; +IBUP800T26; +METF-370 PO; -MORP1TAB12; +TIZA4TAB9 PO; -WARF6TAB2 PO
[2020-07-24] MEDS ORDERED: ASPirin 81 mg TAB PO ONE (16:30)
[2020-07-24] MEDS ORDERED: SODIUM CHLORIDE 0.9% 1,000 ML IV ONE ×2 (16:30)
[2020-07-24] MEDS ORDERED: ONDANSETRON HCL 4 MG/2 ML VIAL IV ONE (16:30)
[2020-07-24] MEDS ORDERED: MORPHINE SULFATE 4 MG/ML SYR/VIAL IV ONE (16:30)
[2020-07-24 16:44] LABS: Basophils # (auto) 0 10 ^3/uL (0-0.2); Basophils % (auto) 0.3 % (0.0-2.0); Eosinophils # (auto) 0.2 10 ^3/uL (0-0.8); Eosinophils % (auto) 1.7 % (0.0-7.0); Hematocrit 34.7 % (36.0-46.0); Hemoglobin 11.5 g/dL (12.2-16.2); Lymphocytes # (auto) 3.1 10 ^3/uL (0.4-5.4); Lymphocytes % (auto) 23.3 % (10.0-50.0); Mean Corpuscular Hgb Conc. 33.1 g/dL (32.0-36.0); Mean Corpuscular Volume 81.6 fL (80.0-100.0); Monocytes # (auto) 0.5 10 ^3/uL (0-1.3); Neutrophils # (auto) 9.3 10 ^3/uL (1.6-8.6); Neutrophils % (auto) 70.7 % (37.0-80.0); Nucleated Red Blood Cells % 0.1 %; Platelet Count (auto) 437 10^3/uL (140-450); Red Blood Cells 4.25 10^6/uL (4.0-5.20); Red Cell Distribution Width 14.9 % (11.8-14.3); White Blood Cell 13.1 10^3/uL (4.4-10.8)
[2020-07-24] MEDS ORDERED: ALBUTEROL SULF 2.5 MG/0.5ML(0.5%) NEB SOLN NEB PRN (17:00)
[2020-07-24] MEDS ORDERED: IPRATROPIUM BROM 0.5 MG/2.5ML INH SOL NEB PRN (17:00)
[2020-07-24 17:02] LABS: Alanine Aminotransferase 36 U/L (13-56); Albumin 3.5 g/dL (3.4-5.0); Anion Gap 9 (5-15); Aspartate Aminotransferase 27 U/L (15-37); BUN/Creatinine Ratio 19.1; Blood Urea Nitrogen 17 mg/dL (7-18); Calcium 9.1 mg/dL (8.5-10.1); Carbon Dioxide 30 mmol/L (21-32); Chloride 95 mmol/L (98-107); GFR African American 91 mL/min; GFR Non-African American 75 mL/min; Glucose 273 mg/dL (74-106); Potassium 3.7 mmol/L (3.5-5.1); Sodium 134 mmol/L (136-145)
[2020-07-24 17:07] LABS: Alkaline Phosphatase 125 U/L (45-117); Bilirubin, Total 0.2 mg/dL (0.2-1.0); Total Protein 8.5 g/dL (6.4-8.2)
[2020-07-24] MEDS ORDERED: cefTRIAXone 1GM/50ML D5W 50 ML IV ONE (17:15)
[2020-07-24 18:09] LABS: Lactic Acid w/Reflex 2.3 mmol/L (0.4-2.0)
[2020-07-24] MEDS ORDERED: ONDANSETRON HCL 4 MG/2 ML VIAL IV PRN (18:15)
[2020-07-24] MEDS ORDERED: NITROGLYCERIN 0.4 MG SL TAB SL PRN (18:15)
[2020-07-24] MEDS ORDERED: HYDROcodone-ACET 5/325MG TAB PO PRN (18:15)
[2020-07-24] MEDS ORDERED: DEXTROSE (50%) 50ML SYRG IV PRN (18:15)
[2020-07-24] MEDS ORDERED: MORPHINE SULF INJ 2 MG/ML SYRINGE 1ML IV PRN (18:15)
[2020-07-24] MEDS: glipiZIDE 5 MG TAB PO SCH (18:45)
[2020-07-24] MEDS: MORPHINE SULFATE 4 MG/ML SYR/VIAL IV PRN ×2 (18:45→22:21)
[2020-07-24 20:54] LABS: Urine Bacteria FEW /hpf (None Seen); Urine Blood Negative /uL (Negative); Urine Specific Gravity 1.038 (1.001-1.035); Urine WBC 1 /hpf (0 - 5)
[2020-07-24] MEDS ORDERED: TEMAZEPAM 15 MG CAP PO PRN (22:00)
[2020-07-24] MEDS: FAMOTIDINE 20 MG TAB PO SCH (22:15)
[2020-07-24] MEDS: ACCU-CHEK COMFORT CURVE STRIP VI SCH (22:17)
[2020-07-24] MEDS: InsuLIN REG 1unit/0.01ml Soln (100units/ml) SC SCH (22:17)
[2020-07-24] MEDS: APIXABAN 2.5 MG TAB PO SCH (22:18)
[2020-07-24 22:45] VITALS: BP 115/71
[2020-07-25] MEDS: MORPHINE SULFATE 4 MG/ML SYR/VIAL IV PRN ×4 (04:42→20:22)
[2020-07-25] MEDS: ACCU-CHEK COMFORT CURVE STRIP VI SCH ×4 (04:55→22:53)
[2020-07-25] MEDS: glipiZIDE 5 MG TAB PO SCH ×2 (04:56→18:00)
[2020-07-25 05:00] VITALS: BP 135/56
[2020-07-25 05:43] LABS: Basophils # (auto) 0.1 10 ^3/uL (0-0.2); Basophils % (auto) 0.6 % (0.0-2.0); Eosinophils # (auto) 0.2 10 ^3/uL (0-0.8); Eosinophils % (auto) 2.6 % (0.0-7.0); Hematocrit 31.4 % (36.0-46.0); Hemoglobin 10.6 g/dL (12.2-16.2); Lymphocytes # (auto) 1.8 10 ^3/uL (0.4-5.4); Lymphocytes % (auto) 19.1 % (10.0-50.0); Mean Corpuscular Hemoglobin 27.9 pg (28.0-32.0); Mean Corpuscular Hgb Conc. 33.6 g/dL (32.0-36.0); Mean Corpuscular Volume 82.9 fL (80.0-100.0); Monocytes # (auto) 0.4 10 ^3/uL (0-1.3); Monocytes % (auto) 4.4 % (0.0-12.0); Neutrophils # (auto) 6.8 10 ^3/uL (1.6-8.6); Neutrophils % (auto) 73.3 % (37.0-80.0); Nucleated Red Blood Cells % 0.1 %; Platelet Count (auto) 325 10^3/uL (140-450); Red Blood Cells 3.79 10^6/uL (4.0-5.20); Red Cell Distribution Width 14.7 % (11.8-14.3); White Blood Cell 9.3 10^3/uL (4.4-10.8)
[2020-07-25 06:06] LABS: BUN/Creatinine Ratio 20.7; Calcium 8.2 mg/dL (8.5-10.1); Potassium 3.9 mmol/L (3.5-5.1)
[2020-07-25 06:09] LABS: Bilirubin, Total 0.2 mg/dL (0.2-1.0); Total Protein 7.1 g/dL (6.4-8.2)
[2020-07-25] MEDS: InsuLIN REG 1unit/0.01ml Soln (100units/ml) SC SCH ×4 (06:20→22:54)
[2020-07-25 08:32] VITALS: BP 139/67
[2020-07-25] MEDS: DOCUSATE SOD 100 MG CAP PO PRN ×2 (09:59→20:22)
[2020-07-25] MEDS: APIXABAN 2.5 MG TAB PO SCH ×2 (09:59→22:52)
[2020-07-25] MEDS: FAMOTIDINE 20 MG TAB PO SCH ×2 (09:59→22:53)
[2020-07-25] MEDS: FUROSEMIDE 20 MG TAB PO SCH (10:00)
[2020-07-25] MEDS: ENALAPRIL MALEATE 10 MG TAB PO SCH (10:00)
[2020-07-25 13:00] VITALS: BP 122/64
[2020-07-25 16:30] VITALS: BP 132/76
[2020-07-25] MEDS ORDERED: IOHEXOL 350 MG/ML 100ML IJ ONE ×2 (16:32→18:04)
[2020-07-25 22:00] VITALS: BP 107/65
[2020-07-26] MEDS: MORPHINE SULFATE 4 MG/ML SYR/VIAL IV PRN ×4 (00:41→13:57)
[2020-07-26 05:00] VITALS: BP 104/56
[2020-07-26] MEDS: ACCU-CHEK COMFORT CURVE STRIP VI SCH ×3 (06:07→16:35)
[2020-07-26] MEDS: InsuLIN REG 1unit/0.01ml Soln (100units/ml) SC SCH ×3 (06:10→16:43)
[2020-07-26] MEDS: glipiZIDE 5 MG TAB PO SCH ×2 (06:47→16:43)
[2020-07-26 09:22] VITALS: BP 102/68
[2020-07-26] MEDS: DOCUSATE SOD 100 MG CAP PO PRN (09:36)
[2020-07-26] MEDS: APIXABAN 2.5 MG TAB PO SCH (09:36)
[2020-07-26] MEDS: ENALAPRIL MALEATE 10 MG TAB PO SCH (09:36)
[2020-07-26] MEDS: FUROSEMIDE 20 MG TAB PO SCH (09:36)
[2020-07-26] MEDS: FAMOTIDINE 20 MG TAB PO SCH (09:36)
[2020-07-26] MEDS ORDERED: PNEUMOCOCCAL VACC POLYS 25 MCG/0.5 ML VIAL IM ONE (09:45)
[2020-07-26] MEDS ORDERED: FURO40TA4 PO (11:59)
[2020-07-26] MEDS ORDERED: FER325T PO (12:00)
[2020-07-26] MEDS ORDERED: INSU100I4 SC (12:00)
[2020-07-26 12:39] VITALS: BP 120/68
[2020-07-26 16:24] VITALS: BP 127/82
== END 2020-07-26 19:59 | disposition home or self-care (01) | DRG 141 ==
LOC: ER 16:16 → TELE 18:06 → TELE-WESTW 22:45
PROVIDERS: ADMIT Nurse Practitioner; ATTEND Nurse Practitioner
DX: J45.901 Unspecified asthma with (acute) exacerbation (principal); I27.20 Pulmonary hypertension, unspecified; E11.40 Type 2 diabetes mellitus with diabetic neuropathy, unspecified; E66.01 Morbid (severe) obesity due to excess calories; Z68.43 Body mass index [BMI] 50.0-59.9, adult; R07.89 Other chest pain; J98.11 Atelectasis; I10 Essential (primary) hypertension; E78.5 Hyperlipidemia, unspecified; J44.9 Chronic obstructive pulmonary disease, unspecified; Z20.822 Contact with and (suspected) exposure to COVID-19; Z79.84 Long term (current) use of oral hypoglycemic drugs; Z79.01 Long term (current) use of anticoagulants; Z79.899 Other long term (current) drug therapy; Z80.0 Family history of malignant neoplasm of digestive organs; Z82.49 Family history of ischemic heart disease and other diseases of the circulatory system; Z83.3 Family history of diabetes mellitus; Z86.711 Personal history of pulmonary embolism; Z86.718 Personal history of other venous thrombosis and embolism
CPT/HCPCS: 36415; 71045; 71275; 74176; 76700; 80053; 81001; 82962; 83036; 83605; 83880; 84484; 85025; 87040; 87086; 87426; 93005; 94640; 96365; 96375; G0378; J0696; J1815; J2405

== ENCOUNTER 2020-11-20 15:33 | Emergency (ER) | payer MEDICAID ==
[~2020-11-20] VITALS: Ht 160 cm; Wt 122.5 kg
[~2020-11-20 15:33] MED LIST changes: -CARI-277 PO; +FER325T PO; -FURO1TAB33 PO; +FURO40TA4 PO; +INSU100I4 SC; -SIMV-8 PO
[2020-11-20 17:26] VITALS: BP 123/87
== END 2020-11-20 20:25 | disposition left against medical advice (07) ==
LOC: ER 15:41
DX: R06.02 Shortness of breath (principal); R51.9 Headache, unspecified; R11.0 Nausea; R42 Dizziness and giddiness; Z20.822 Contact with and (suspected) exposure to COVID-19; Z53.21 Procedure and treatment not carried out due to patient leaving prior to being seen by health care provider
CPT/HCPCS: 36415; 71045; 87426

== ENCOUNTER 2023-01-25 16:37 | Emergency (ER) | payer MEDICAID ==
[~2023-01-25] VITALS: Ht 160 cm; Wt 109.0 kg
[~2023-01-25 16:37] MED LIST changes: +ALBU108A5 INH; -ALPR2TAB2 PO; -DOCU100T15 PO; -ENAL10TA12 PO; +ENAL1TAB46 PO; -FER325T PO; -FLUT110A; -IBUP800T26; +METO25TA5 PO; -ZOLP10TA6
[2023-01-25 17:04] LABS: Basophils # (auto) 0.1 10 ^3/uL (0-0.2); Basophils % (auto) 0.8 % (0.0-2.0); Eosinophils # (auto) 0.2 10 ^3/uL (0-0.8); Eosinophils % (auto) 2.6 % (0.0-7.0); Hematocrit 29.7 % (36.0-46.0); Hemoglobin 9.7 g/dL (12.2-16.2); Lymphocytes % (auto) 20.7 % (10.0-50.0); Mean Corpuscular Hemoglobin 26.2 pg (28.0-32.0); Mean Corpuscular Hgb Conc. 32.5 g/dL (32.0-36.0); Mean Corpuscular Volume 80.7 fL (80.0-100.0); Monocytes # (auto) 0.5 10 ^3/uL (0-1.3); Monocytes % (auto) 5.1 % (0.0-12.0); Neutrophils # (auto) 6.8 10 ^3/uL (1.6-8.6); Neutrophils % (auto) 70.8 % (37.0-80.0); Red Blood Cells 3.68 10^6/uL (4.0-5.20); Red Cell Distribution Width 13.2 % (11.8-14.3); White Blood Cell 9.5 10^3/uL (4.4-10.8)
[2023-01-25 17:22] LABS: Alanine Aminotransferase 12 U/L (7-40); Albumin 4.5 g/dL (3.2-4.8); Alkaline Phosphatase 115 U/L (46-116); Anion Gap 6 (5-15); Aspartate Aminotransferase 16 U/L (13-40); Bilirubin, Total 0.3 mg/dL (0.2-1.0); Blood Urea Nitrogen 10 mg/dL (9-23); Calcium 9.5 mg/dL (8.7-10.4); Carbon Dioxide 30 mmol/L (20-30); Chloride 105 mmol/L (98-107); Glucose 121 mg/dL (74-106); Potassium 3.8 mmol/L (3.5-5.1); Sodium 141 mmol/L (136-145); Total Protein 7.1 g/dL (5.7-8.2)
[2023-01-25 17:38] LABS: INR 0.96 (0.9-1.15); Partial Thromboplastin Time 28.5 SEC (24.5-34.5); Prothrombin Time 10.3 sec (9.3-11.8)
[2023-01-25] MEDS ORDERED: ONDANSETRON ODT 4 MG TAB PO ONE (18:15)
[2023-01-25] MEDS ORDERED: IOHEXOL 350 MG/ML 100ML IJ ONE (18:50)
[2023-01-25 20:55] VITALS: BP 154/97; PULSE 99; RESP 16; TEMP 98.1; O2SAT 96
== END 2023-01-25 21:07 | disposition home or self-care (01) ==
LOC: ER 16:37
DX: R07.89 Other chest pain (principal); R10.2 Pelvic and perineal pain; I10 Essential (primary) hypertension; E11.9 Type 2 diabetes mellitus without complications; F41.9 Anxiety disorder, unspecified; J45.909 Unspecified asthma, uncomplicated; Z98.890 Other specified postprocedural states; Z79.899 Other long term (current) drug therapy
CPT/HCPCS: 36415; 71045; 71275; 80053; 84484; 84702; 85025; 85610; 85730; 93005; 99285; Q0162; Q9967

== ENCOUNTER 2024-02-14 00:47 | Inpatient (IN) | payer MEDICAID ==
[~2024-02-14] VITALS: Ht 157.5 cm; Wt 114.1 kg
[~2024-02-14 00:47] MED LIST changes: -GLIP5TAB12 PO; +GLIP5TAB21 PO
--- NOTE | 2024-02-14 01:11 | ED.PDOC ---
History of Present Illness HPI Comments 43-year-old female presents with a chief complaint of SOB x 4 days with associated chest pain. Patient states that her pain is localized to her sternal region, non-radiating, describes as tightness, and states that it is preventing her from taking a deep breath. Patient is a poor historian. States that she was on blood thinners in the past for pulmonary embolism. She was on Eliquis however this was discontinued in November. She reports associated cough, congestion, rhinorrhea, flu-like symptoms. Chief Complaint: Chest Pain Time Seen by MD: 00:57 Primary Care Provider: CYNTHIA Reviewed Notes: Medications, Allergies Allergies: Coded Allergies: NO KNOWN ALLERGIES (Unverified , 05/03/19) Home Meds Active Scripts Metoprolol Tartrate (Metoprolol Tartrate) 25 Mg Tab, 50 MG PO BID for 30 Days, #120 TAB Prov:ROZ RENDON FUEL PILOT ENGINEER 06/10/21 Reported Medications Albuterol Sulfate (Albuterol Sulfate Hfa) 108 Mcg/Act Aer, 4 PUFF INH PRN 06/06/21 Insulin Lispro (Humalog Kwikpen) 100 Unit/Ml Inj, 100 UNIT SC, INJ use sliding scale 07/26/20 Furosemide (Furosemide) 40 Mg Tab, 20 MG PO DAILY for 30 Days 07/26/20 Tizanidine Hydrochloride (Zanaflex) 4 Mg Tab, 2 MG PO TID for muscle spasms, TAB 01/15/20 Glipizide (Glipizide) 5 Mg Tab, 10 MG PO BID for 30 Days, MG 01/15/20 Metformin Hydrochloride (Metformin Hcl) 500 Mg Tab, 1000 MG PO BID for 30 Days, MG 01/15/20 Hydrocodone-Acetaminophen ([place] 10-325 mg) 1 Tab Tab, TID 05/03/19 Apixaban Base (ELIQUIS) 2.5 Mg Tab, 5 MG PO BID, TAB 04/17/19 Morphine Sulfate (Morphine Sulfate) 30 Mg Tab, 1 TAB PO BID, #60 TAB 04/17/19 Enalapril Maleate (VASOTEC TABLET) 10 Mg Tb, 1 TAB PO DAILY, #30 TAB 5 Refills 04/17/19 Information Source: Patient Mode of Arrival: Ambulatory Severity: Moderate Timing: Days Duration: Since onset Prehospital treatment: None Vital Signs Vital Signs Date Time Temp Pulse Resp B/P (MAP) Pulse Ox O2 Delivery O2 Flow Rate FiO2 02/14/24 01:46 92 02/14/24 00:57 99.0 20 139/93 (108) 98 Physical Exam General: Awake, alert and oriented. No acute distress. Patient appears winded after ambulating Skin: Skin in warm, dry and intact. Appropriate color for ethnicity. Nailbeds pink with no cyanosis. HEENT: The head is normocephalic and atraumatic. Conjunctivae are clear without exudates or hemorrhage. Sclera is non-icteric. EOM are intact. No signs of nystagmus. Eyelids are normal in appearance without swelling or lesions. Oral mucosa is pink and moist Neck: The neck is supple with normal range of motion. No JVD. Cardiac: Heart rate and rhythm are normal. No murmurs, gallops, or rubs are auscultated. Respiratory: No signs of respiratory distress. Lung sounds are clear in all lobes bilaterally without rales, ronchi, or wheezes. Abdominal: Abdomen is soft, non-tender without distention. Bowel sounds are present and normoactive in all four quadrants. Extremities: Upper and lower extremities are atraumatic in appearance without deformity or edema. Neurological: The patient is awake, alert and oriented to person, place, and time with normal speech. Speech is clear. There is no facial asymmetry. Psychiatric: Appropriate mood and affect. Good judgement and insight. No visual or auditory hallucinations. Review of Systems: REVIEW OF SYSTEMS: No fever, no chills, or fatigue HEENT: No sore throat, earache, positive congestion. No neck pain. Cardiac: Positive chest pain. No palpitations. Lungs: Positive Shortness of breath, cough GI: No nausea, no vomiting, no diarrhea, no constipation, no abdominal pain : No dysuria, frequency, or urgency. No hematuria. Musculoskeletal: No joint pain or swelling or edema. Skin: No rash or itching. 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 Was a procedure done?: No EKG EKG : Pulse Rate (adult): 87 [place]: Normal Cardiac Rhythm: NSR Block: None Hypertrophy: None ST: Normal Differential Dx Considerations may include: Differential diagnoses considered includebut arenot limited to acute Bronch itis, Asthma, COPD, Pneumothorax, PE, CHF, Pulmonary HTN, Anemia, CO Poisoning, Methemoglobinemia, Hyperventilation, Metabolic Acidosis, Pulmonary Edema, Pneumonia, ACS, Pericardial Tamponade, Anxiety, other X-Ray, Labs, Meds, VS Vital Signs Date Time Temp Pulse Resp B/P (MAP) Pulse Ox O2 Delivery O2 Flow Rate FiO2 02/14/24 01:46 92 02/14/24 01:11 87 02/14/24 00:57 99.0 100 20 139/93 (108) 98 02/14/24 00:54 87 Lab Test 02/14/24 04:39 02/14/24 03:58 02/14/24 02:27 02/14/24 01:20 Range/Units Sodium Level 132 L 132 L 136-145 mmol/L Potassium Level 4.0 4.2 3.5-5.1 mmol/L Chloride Level 99 97 L 98-107 mmol/L Carbon Dioxide Level 27 27 20-31 mmol/L Anion Gap 6 8 5-15 Blood Urea Nitrogen 13 12 9-23 mg/dL Creatinine 1.08 H 1.13 H 0.550-1.02 mg/dL Glomerular Filtration Rate Calc 66 62 >90 mL/min BUN/Creatinine Ratio 12.0 10.6 10.0-20.0 Serum Glucose 522 *H 691 *H 74-106 mg/dL Calcium Level 10.0 9.7 8.7-10.4 mg/dL Troponin I High Sensitivity 41 *H 43 *H 43 *H </=34 ng/L POC Glucose 523 *H 70-106 mg/dl White Blood Count 8.5 4.4-10.8 10^3/uL Red Blood Count 3.71 L 4.0-5.20 10^6/uL Hemoglobin 9.0 L 12.2-16.2 g/dL Hematocrit 28.6 L 36.0-46.0 % Mean Corpuscular Volume 77.2 L 80.0-100.0 fL Mean Corpuscular Hemoglobin 24.1 L 28.0-32.0 pg Mean Corpuscular Hemoglobin Concent 31.3 L 32.0-36.0 g/dL Red Cell Distribution Width 15.9 H 11.8-14.3 % Platelet Count 374 140-450 10^3/uL Mean Platelet Volume 7.7 6.9-10.8 fL Neutrophils (%) (Auto) 68.6 37.0-80.0 % Lymphocytes (%) (Auto) 23.4 10.0-50.0 % Monocytes (%) (Auto) 5.2 0.0-12.0 % Eosinophils (%) (Auto) 2.2 0.0-7.0 % Basophils (%) (Auto) 0.6 0.0-2.0 % Neutrophils # (Auto) 5.8 1.6-8.6 10 ^3/uL Lymphocytes # (Auto) 2.0 0.4-5.4 10 ^3/uL Monocytes # (Auto) 0.4 0-1.3 10 ^3/uL Eosinophils # (Auto) 0.2 0-0.8 10 ^3/uL Basophils # (Auto) 0.1 0-0.2 10 ^3/uL Nucleated Red Blood Cells 0.1 % Total Bilirubin 0.2 0.2-1.0 mg/dL Aspartate Amino Transferase (AST) 13 13-40 U/L Alanine Aminotransferase (ALT) 12 7-40 U/L Alkaline Phosphatase 135 H 46-116 U/L B-Type Natriuretic Peptide 44.07 0-100 pg/mL Total Protein 6.9 5.7-8.2 g/dL Albumin 4.4 3.2-4.8 g/dL Beta HCG, Quantitative 0.1 L 1.5-4.2 mIU/mL Current Medications Medications (Trade) Dose Ordered Sig/Osmin Route Start Time Stop Time Status Last Admin Insulin Human Regular (InsuLIN R) 10 units ONCE ONCE IV 02/14/24 02:15 02/14/24 02:19 DC 02/14/24 03:58 Time of 1ST Reevaluation: 01:27 Reevaluation 1ST: Unchanged Patient Education/Counseling: Diagnosis, Treatment, Prognosis Family Education/Counseling: No Family Present Departure 1 Departure Time of Disposition: 04:31 Impression: Primary Impression: Pulmonary hypertension Additional Impressions: Shortness of breath Hyperglycemia Disposition: 09 ADMITTED INPATIENT Condition: Stable Comments 43-year-old female presenting to emergency department with shortness of breath, chest pain. Hyperglycemia without DKA, pulmonary hypertension, continued dyspnea. There is concern for pulmonary embolism in the differential which was ruled out. Concern for acute deterioration in patient's status. She is saturating well on room air at this time. IV fluids, insulin administered . Patient admitted for further treatment, evaluation and monitoring. I reviewed the following notes from the pt's past medical encounters: Reviewed previous visit 01/26/2024 The following tests were ordered, and results were reviewed by me: See labs, imaging Additional information was gathered from interviewing the following independent historians: N/A I reviewed and agreed with the following test results read by other providers: Agree with radiologist's interpretation of chest x-ray I discussed treatments and results with patient. Critical Care Note Critical Care Time?: No Stability Stability form required: No I personally scribed for DONAVAN ALDANA MD ([email or web address]) on 02/14/24 at 01:11. Electronically submitted by Herb Flores ([email or web address]). DONAVAN ALDANA MD Feb 14, 2024 01:11
[2024-02-14] MEDS: IOHEXOL 350 MG/ML 100ML IJ ONE (01:16)
[2024-02-14 01:41] LABS: Basophils # (auto) 0.1 10 ^3/uL (0-0.2); Eosinophils # (auto) 0.2 10 ^3/uL (0-0.8); Eosinophils % (auto) 2.2 % (0.0-7.0); Monocytes # (auto) 0.4 10 ^3/uL (0-1.3); Nucleated Red Blood Cells % 0.1 %
[2024-02-14 01:42] LABS: Basophils % (auto) 0.6 % (0.0-2.0); Hematocrit 28.6 % (36.0-46.0); Lymphocytes % (auto) 23.4 % (10.0-50.0); Mean Corpuscular Hemoglobin 24.1 pg (28.0-32.0); Mean Corpuscular Hgb Conc. 31.3 g/dL (32.0-36.0); Mean Corpuscular Volume 77.2 fL (80.0-100.0); Monocytes % (auto) 5.2 % (0.0-12.0); Neutrophils # (auto) 5.8 10 ^3/uL (1.6-8.6); Neutrophils % (auto) 68.6 % (37.0-80.0); Platelet Count (auto) 374 10^3/uL (140-450); Red Blood Cells 3.71 10^6/uL (4.0-5.20); Red Cell Distribution Width 15.9 % (11.8-14.3); White Blood Cell 8.5 10^3/uL (4.4-10.8)
[2024-02-14 01:58] LABS: Alanine Aminotransferase 12 U/L (7-40); Albumin 4.4 g/dL (3.2-4.8); Anion Gap 8 (5-15); BUN/Creatinine Ratio 10.6 (10.0-20.0); Blood Urea Nitrogen 12 mg/dL (9-23); Calcium 9.7 mg/dL (8.7-10.4); Carbon Dioxide 27 mmol/L (20-31); Potassium 4.2 mmol/L (3.5-5.1); Total Protein 6.9 g/dL (5.7-8.2)
[2024-02-14 02:02] LABS: Alkaline Phosphatase 135 U/L (46-116); Aspartate Aminotransferase 13 U/L (13-40); Bilirubin, Total 0.2 mg/dL (0.2-1.0); Chloride 97 mmol/L (98-107); Glucose 691 mg/dL (74-106); Sodium 132 mmol/L (136-145)
[2024-02-14] MEDS: SODIUM CHLORIDE 0.9% 1,000 ML IV ONE ×2 (02:15→05:14)
--- NOTE | 2024-02-14 03:52 | DVH ---
Examination: CXRP Clinical Indication: Chest pain, shortness of breath. Comparison: None. Technique: Frontal radiograph of the chest was obtained. Findings: Mild cardiomegaly with bilateral congestion. Blunting of the right costophrenic angle, suggestive of mild right-sided pleural effusion. No evidence of pneumothorax. No acute osseous abnormality is seen. Impression: 1. Mild cardiomegaly with bilateral congestion. 2. Blunting of the right costophrenic angle, suggestive mild right-sided pleural effusion. 3. No evidence of pneumothorax. Electronically Signed 02/14/2024 03:50 Nicki Frank
[2024-02-14] MEDS: InsuLIN REG 1unit/0.01ml Soln (100units/ml) IV ONE (03:58)
--- NOTE | 2024-02-14 04:00 | DVH ---
Examination: CTACH CLINICAL INDICATION: CP, SOB, Hx PE off Eliquis, r/o PE COMPARISON: None. CONTRAST USED: Intravenous non-ionic contrast. TECHNIQUE: CT pulmonary angiogram was performed using principles of ALARA (As Low As Reasonably Achi evable). Axial sections were obtained at 5 mm with 1 mm collimation. Retrospective 3D reconstructio n in MIP and MPR formats was performed. FINDINGS: Pulmonary Vasculature: Significantly dilated pulmonary trunk measuring 4.8 cm. Mildly prominent aspen ateral pulmonary arteries measuring up to 26 mm. Normal contrast opacification of the pulmonary vasc ulature, including the descending and interlobar pulmonary arteries. No evidence of intraluminal robi ling defects or pulmonary embolism. Thoracic Structures: Heart: Mild cardiomegaly with no evidence of pericardial effusion. Trachea and Bronchi: Normal in caliber and morphology. Mediastinum: No mediastinal lymphadenopathy identified. Thoracic Aorta: Unremarkable, except for mild atherosclerotic calcifications. Lung Parenchyma: Mild centrilobular emphysematous changes. Linear fibrotic band in the lateral post erior basal segment of the right lower lobe. Mild bilateral posterior pleural thickening. No lung n odules or acute infiltrates. Abdomen (Visualized): Gallbladder: Unremarkable. Adrenal Glands: Unremarkable. Liver: Mild hepatomegaly with diffuse fatty infiltration. Spleen: Borderline splenomegaly. Pancreas: Unremarkable. Kidneys: Visualized portions appear unremarkable. Pleural Spaces: No pleural effusions. Bony Thorax: Normal. Hiatus Hernia: Mild hiatus hernia measuring 20 mm. IMPRESSION: 1. Pulmonary hypertension: Significantly dilated pulmonary trunk (4.8 cm) and mildly prominent bila teral pulmonary arteries (26 mm). Pulmonary Vasculature: Normal contrast opacification with no evidence of pulmonary embolism. 2. Thoracic Findings: Mild cardiomegaly with no pericardial effusion. Mild centrilobular emphysema tous changes and linear fibrotic band in the lateral posterior basal segment of the right lower lobe. Mild bilateral posterior pleural thickening. 3. Abdominal Findings: Mild hepatomegaly with diffuse fatty infiltration. Borderline splenomegaly. Mild hiatus hernia (20 mm). 4. Vascular Findings: Mild atherosclerotic calcification of the thoracic aorta. Electronically Signed 02/14/2024 03:59 Nicki Frank
[2024-02-14 04:54] LABS: Chloride 99 mmol/L (98-107)
[2024-02-14 04:55] LABS: Anion Gap 6 (5-15); Carbon Dioxide 27 mmol/L (20-31)
[2024-02-14 05:00] LABS: Blood Urea Nitrogen 13 mg/dL (9-23)
[2024-02-14] MEDS ORDERED: ONDANSETRON HCL 4 MG/2 ML VIAL IV PRN (05:00)
[2024-02-14] MEDS ORDERED: DEXTROSE (50%) 50ML SYRG IV PRN (05:00)
[2024-02-14] MEDS ORDERED: ALBUTEROL SULF 2.5 MG/0.5ML(0.5%) NEB SOLN NEB PRN (05:00)
[2024-02-14] MEDS ORDERED: NITROGLYCERIN 0.4 MG SL TAB SL PRN (05:00)
[2024-02-14 05:02] LABS: Sodium 132 mmol/L (136-145)
[2024-02-14 05:03] LABS: Glucose 522 mg/dL (74-106)
[2024-02-14] MEDS: FUROSEMIDE 40 MG/4 ML VIAL IV ONE (05:18)
--- NOTE | 2024-02-14 05:31 | DVHHP2 ---
History of Present Illness Reason for Visit: Shortness of breaths History of Present Illness 43-year-old female presents for evaluation of shortness for breath. Patient reports a four day history of worsening sore she breath with associated chest tightness. Denies cough or fever. Patient reports a history of pulmonary embolism was recently taken off her Eliquis three months ago. No other acute complaints reported. Past Medical History Diabetes mellitus, COPD, dyslipidemia, hypertension, PE, asthma Past Surgical History Family History Diabetes mellitus and hypertension Smoke: No ALCOHOL: none Drugs: None Lives: with Family Review of Systems Review of Systems Review of systems are currently negative otherwise addressed in HPI. Allergies: Coded Allergies: NO KNOWN ALLERGIES (Unverified , 05/03/19) Medications Current Medications Medications Dose Ordered Sig/Osmin Route Start Time Stop Time Status Last Admin Dose Admin Enalapril Maleate 10 mg DAILY PO 02/14/24 10:00 Furosemide 40 mg DAILY PO 02/15/24 10:00 Carvedilol 6.25 mg Q12HR PO 02/14/24 10:00 Aspirin 162 mg DAILY PO 02/14/24 10:00 Atorvastatin Calcium 10 mg HS PO 02/14/24 22:00 Albuterol 2.5 mg Q6HPRN PRN NEB 02/14/24 05:00 Diagnostic Test (Pha) 1 strip IQ4HR 02/14/24 08:00 Insulin Human Regular IQ4HR SC 02/14/24 08:00 Dextrose 50 ml UD PRN IV 02/14/24 05:00 Ondansetron HCl 4 mg Q4HP PRN IV 02/14/24 05:00 Acetaminophen 650 mg Q6HP PRN PO 02/14/24 05:00 Nitroglycerin 0.4 mg Q5MINP PRN SL 02/14/24 05:00 Morphine Sulfate 2 mg Q30M PRN IV 02/14/24 05:00 Exam Vital Signs Vital Signs Date Time Temp Pulse Resp B/P (MAP) Pulse Ox O2 Delivery O2 Flow Rate FiO2 02/14/24 05:18 140/102 02/14/24 05:15 Room Air* 0 21 02/14/24 05:00 86 19 95 02/14/24 00:57 99.0 Exam Gen: 43-year-old female in mild distress, morbidly obese Skin: Warm, dry, normal color and texture, no rash. HEENT: Normocephalic atraumatic, mucous membranes moist and pink. Neck: Cervical and supraclavicular nodes normal without enlargement, trachea is midline, thyroid gland is normal without masses. Pulmonary: Bilateral wheeze Cardiac: Regular rate and rhythm. No murmur Abdomen: Soft, nontender, nondistended, bowel sounds present all 4 quadrants, no guarding, no rigidity, no organomegaly. Extremities: No cyanosis, clubbing, no edema Neuro: Cranial nerves II through XII grossly intact, normal affect and speech, no focal motor deficits. Labs/Xrays ORDERING PHYSICIAN: DONAVAN ALDANA MD PROCEDURE(s): CTACH - CT ANGIO CHEST CONTRAST REASON: CP, SOB, Hx PE off Eliquis, r/o PE ORDER NUMBER(s): [id number], ACCESSION NUMBER(s): [id number] Examination: CTACH CLINICAL INDICATION: CP, SOB, Hx PE off Eliquis, r/o PE COMPARISON: None. CONTRAST USED: Intravenous non-ionic contrast. TECHNIQUE: CT pulmonary angiogram was performed using principles of ALARA (As Low As Reasonably Achievable). Axial sections were obtained at 5 mm with 1 mm collimation. Retrospective 3D reconstruction in MIP and MPR formats was performed. FINDINGS: Pulmonary Vasculature: Significantly dilated pulmonary trunk measuring 4.8 cm. Mildly prominent bilateral pulmonary arteries measuring up to 26 mm. Normal contrast opacification of the pulmonary vasculature, including the descending and interlobar pulmonary arteries. No evidence of intraluminal filling defects or pulmonary embolism. Thoracic Structures: Heart: Mild cardiomegaly with no evidence of pericardial effusion. Trachea and Bronchi: Normal in caliber and morphology. Mediastinum: No mediastinal lymphadenopathy identified. Thoracic Aorta: Unremarkable, except for mild atherosclerotic calcifications. Lung Parenchyma: Mild centrilobular emphysematous changes. Linear fibrotic band in the lateral posterior basal segment of the right lower lobe. Mild bilateral posterior pleural thickening. No lung nodules or acute infiltrates. Abdomen (Visualized): Gallbladder: Unremarkable. Adrenal Glands: Unremarkable. Liver: Mild hepatomegaly with diffuse fatty infiltration. Spleen: Borderline splenomegaly. Pancreas: Unremarkable. Kidneys: Visualized portions appear unremarkable. Pleural Spaces: No pleural effusions. Bony Thorax: Normal. Hiatus Hernia: Mild hiatus hernia measuring 20 mm. IMPRESSION: 1. Pulmonary hypertension: Significantly dilated pulmonary trunk (4.8 cm) and mildly prominent bilateral pulmonary arteries (26 mm). Pulmonary Vasculature: Normal contrast opacification with no evidence of pulmonary embolism. 2. Thoracic Findings: Mild cardiomegaly with no pericardial effusion. Mild centrilobular emphysematous changes and linear fibrotic band in the lateral posterior basal segment of the right lower lobe. Mild bilateral posterior pleural thickening. 3. Abdominal Findings: Mild hepatomegaly with diffuse fatty infiltration. Borderline splenomegaly. Mild hiatus hernia (20 mm). 4. Vascular Findings: Mild atherosclerotic calcification of the thoracic aorta. Electronically Signed 02/14/2024 03:59 Nicki Frank Labs Test 02/14/24 04:39 02/14/24 03:58 02/14/24 01:20 Range/Units Sodium Level 132 L 136-145 mmol/L Potassium Level 4.0 3.5-5.1 mmol/L Chloride Level 99 98-107 mmol/L Carbon Dioxide Level 27 20-31 mmol/L Anion Gap 6 5-15 Blood Urea Nitrogen 13 9-23 mg/dL Creatinine 1.08 H 0.550-1.02 mg/dL Glomerular Filtration Rate Calc 66 >90 mL/min BUN/Creatinine Ratio 12.0 10.0-20.0 Serum Glucose 522 *H 74-106 mg/dL Calcium Level 10.0 8.7-10.4 mg/dL Troponin I High Sensitivity 41 *H </=34 ng/L POC Glucose 523 *H 70-106 mg/dl White Blood Count 8.5 4.4-10.8 10^3/uL Red Blood Count 3.71 L 4.0-5.20 10^6/uL Hemoglobin 9.0 L 12.2-16.2 g/dL Hematocrit 28.6 L 36.0-46.0 % Mean Corpuscular Volume 77.2 L 80.0-100.0 fL Mean Corpuscular Hemoglobin 24.1 L 28.0-32.0 pg Mean Corpuscular Hemoglobin Concent 31.3 L 32.0-36.0 g/dL Red Cell Distribution Width 15.9 H 11.8-14.3 % Platelet Count 374 140-450 10^3/uL Mean Platelet Volume 7.7 6.9-10.8 fL Neutrophils (%) (Auto) 68.6 37.0-80.0 % Lymphocytes (%) (Auto) 23.4 10.0-50.0 % Monocytes (%) (Auto) 5.2 0.0-12.0 % Eosinophils (%) (Auto) 2.2 0.0-7.0 % Basophils (%) (Auto) 0.6 0.0-2.0 % Neutrophils # (Auto) 5.8 1.6-8.6 10 ^3/uL Lymphocytes # (Auto) 2.0 0.4-5.4 10 ^3/uL Monocytes # (Auto) 0.4 0-1.3 10 ^3/uL Eosinophils # (Auto) 0.2 0-0.8 10 ^3/uL Basophils # (Auto) 0.1 0-0.2 10 ^3/uL Nucleated Red Blood Cells 0.1 % Total Bilirubin 0.2 0.2-1.0 mg/dL Aspartate Amino Transferase (AST) 13 13-40 U/L Alanine Aminotransferase (ALT) 12 7-40 U/L Alkaline Phosphatase 135 H 46-116 U/L B-Type Natriuretic Peptide 44.07 0-100 pg/mL Total Protein 6.9 5.7-8.2 g/dL Albumin 4.4 3.2-4.8 g/dL Beta HCG, Quantitative 0.1 L 1.5-4.2 mIU/mL Assessment/Plan Assessment/Plan Assessment Acute on chronic respiratory failure COPD Pulmonary hypertension Uncontrolled diabetes mellitus Elevated troponin,? Demand ischemia Plan Admit the patient to telemetry to the hospitalist Cardiology consultation Echocardiogram pending Resume home medications Continue treatment per orders. Plan discussed with: Patient My Orders Orders - ELODIA PACE Procedure Category Date Status Time Enalapril Tablet PHA 02/14/24 In Process (Vasotec Tablet) 10:00 Carvedilol Tablet PHA 02/14/24 In Process (Coreg Tablet) 10:00 Aspirin Tablet PHA 02/14/24 In Process 10:00 Atorvastatin (Lipitor) PHA 02/14/24 In Process 22:00 Albuterol Medneb PHA 02/14/24 In Process (Ventolin Medneb) 05:00 * Cardiology Consult CONS 02/14/24 Transmitted 04:51 Basic Metabolic Panel LAB 02/15/24 Verified 04:00 Glucose Blood PHA 02/14/24 In Process (Accu-Chek Comfort 08:00 Insulin R (Human) PHA 02/14/24 In Process (Insulin R) 08:00 Dextrose 50% Syringe PHA 02/14/24 In Process 05:00 Admit ADMIT 02/14/24 Transmitted 04:51 Ondansetron Hcl PHA 02/14/24 In Process (Zofran) 05:00 Complete Blood Count LAB 02/15/24 Verified 04:00 Cardiac DIET 02/14/24 Transmitted Diet-2gna,Lofat,Lochol Breakfast Echo 2d Mode Cardiac US 02/14/24 Logged DOP 04:51 Condition: Fair LAKESHA 02/14/24 In Process 04:51 Acetaminophen Tablet PHA 02/14/24 In Process (Tylenol Tablet) 05:00 Bedrest With Bathroom LAKESHA 02/14/24 In Process Privileg 04:51 Nitroglycerin PHA 02/14/24 In Process Sublingual (Ntrostat 05:00 Morphine Sulfate PHA 02/14/24 In Process Injection 05:00 Stat Ekg For Chest LAKESHA 02/14/24 In Process Pain 04:51 Notify Md Of Changes LAKESHA 02/14/24 In Process From Base 04:51 Monotype Caster For LAKESHA 02/14/24 In Process 24 Hours 04:51 Emergency Dysrhythmia LAKESHA 02/14/24 In Process Protocol 04:51 Rhythm Strips Once LAKESHA 02/14/24 In Process Every Shift 04:51 Oxygen By Nasal RT 02/14/24 Transmitted Cannula 04:51 Furosemide Tablet PHA 02/15/24 In Process (Lasix Tablet) 10:00 Date of Service: Feb 14, 2024 Billing Provider: ELODIA PACE Common Visit Codes: [id number] INP/OBS CARE (HIGH) ELODIA PACE Feb 14, 2024 05:31
[2024-02-14] MEDS: MORPHINE SULFATE INJ 2 MG/ml SYRG IV PRN (06:17)
[2024-02-14 06:39] LABS: COVID19 ANTIGEN SOFIA FIA NEGATIVE (NEGATIVE); Rapid Influenza A Negative (Negative); Rapid Influenza B Negative (Negative)
[2024-02-14 07:01] VITALS: O2SAT 98
[2024-02-14 07:25] VITALS: PULSE 85; RESP 16; O2SAT 98
[2024-02-14] MEDS: ACCU-CHEK COMFORT CURVE STRIP VI SCH (08:22)
[2024-02-14] MEDS: InsuLIN REG 1unit/0.01ml Soln (100units/ml) SC SCH (08:25)
[2024-02-14 09:13] VITALS: BP 148/99; PULSE 100; RESP 14; TEMP 99; O2SAT 98
--- NOTE | 2024-02-14 09:54 | ECG ---
[facility] Test Date: 2024-02-14 Test Time: 01:46:34 Pat Name: AVERY BARRON Department: ED Room: [address] [place] [address] Gender: F Summer Analyst: BROWN : 1980 Requested By: DONAVAN ALDANA Order Number: [id number] Reading MD: Walter Silveira Measurements Intervals [place] Rate: 92 P: 20 AL: 162 QRS: 70 QRSD: 101 T: 69 QT: 362 QTc: 448 Interpretive Statements Sinus rhythm RSR' in V1 or V2, right VCD or RVH Electronically Signed On 02-16-2024 16:12:43 PST by Walter Silveira Please click the below link to view image of tracing.
[2024-02-14] MEDS: CARVEDILOL 3.125 MG TAB PO SCH ×2 (11:20→21:43)
[2024-02-14] MEDS: ASPirin 81 mg TAB PO SCH (11:20)
[2024-02-14] MEDS: ENALAPRIL MALEATE 10 MG TAB PO SCH (11:21)
--- NOTE | 2024-02-14 12:18 | DVHSR ---
APPROVED REPORT EXAM: Two-dimensional and M-mode echocardiogram with Doppler and color Doppler. Blood Pressure: 139/97 mmHg INDICATION Chest Pain RISK FACTORS Obesity: Height: 5'2", Weight: 251 DIMENSIONS LVDd3.8 (3.8-5.7cm)LA (2D)3.9 (1.9-4.0cm)Aortic Root3.4 (2.0-3.7cm) LVDs2.6 (2.5-4.0cm)LA (MM) (1.9-4.0cm)Aortic Cusp Exc1.9 (1.5-2.0cm) EF (%) 60.0 (55-70%)Rt. Atrium3.9 (1.9-4.0cm)Asc. Aorta cm IVSd1.5 (0.7-1.1cm)RV (D) (1.8-2.4cm) PWd1.3 (0.7-1.1cm) Mitral Valve MitralMitral Stenosis E wave0.66m/sMV Mean GR.mmHg A wave1.10m/sMV Peak GR.mmHg E/A ratio0.62D MVAcm2 DECEL [id number] 1/2 Timems Aortic Valve Aortic ValveAortic Stenosis LVOT Diameter1.8 (1.8-2.4cm)Doppler AVAcm2 2D AVA2.56cm2 Pulmonic Valve V21.52m/s Other Information Technically limited study due to body habitus. Conclusion lvef 65% at least moderate LVH hx of LV mid cavitary gradient, appears worse now with gradient >50 mmhg at peak, there is obliterati n of LV cavity given small size this does raise the concern for HCM but MRI would be helpful no FRANKLIN noted normal RV function left atrium enlarged mild cannot assess for pulm htn, howeever R heart is normal size at this time
--- NOTE | 2024-02-14 12:36 | ECG ---
[facility] Test Date: 2024-02-14 Test Time: 00:54:25 Pat Name: AVERY BARRON Department: ED Room: [address] [place] [address] Gender: F Siding Coreboard Inspector: MIRI : 1980 Requested By: DONAVAN ALDANA Order Number: [id number] Reading MD: Walter Silveira Measurements Intervals [place] Rate: 87 P: 52 OK: 174 QRS: 64 QRSD: 104 T: 69 QT: 397 QTc: 478 Interpretive Statements Sinus rhythm LAE, consider biatrial enlargement RSR' in V1 or V2, right VCD or RVH Nonspecific T abnrm, anterolateral leads Electronically Signed On 02-16-2024 16:12:40 PST by Walter Silveira Please click the below link to view image of tracing.
--- NOTE | 2024-02-14 14:43 | DVHINCON2 ---
Date of service: Feb 14, 2024 History of Present Illness 43 yo F with hx of obesity , copd admitted for sob and elevated BS. pt has polydipsia. pt had recent negative LHC with me last month. Past Medical History reviewed Family History: Autism 19 CHILD Diabetes mellitus G8 MOTHER, Onset:Unknown FH: colon cancer G8 FATHER, Onset:Unknown FH: epilepsy 19 CHILD FH: migraines 19 CHILD FHx: suicide Psoriasis Allergies: Coded Allergies: NO KNOWN ALLERGIES (Unverified , 05/03/19) Home Meds Active Scripts Metoprolol Tartrate (Metoprolol Tartrate) 25 Mg Tab, 50 MG PO BID for 30 Days, #120 TAB Prov:ROZ RENDON COMMERCIAL FIELD INSPECTOR 06/10/21 Reported Medications Albuterol Sulfate (Albuterol Sulfate Hfa) 108 Mcg/Act Aer, 4 PUFF INH PRN 06/06/21 Insulin Lispro (Humalog Kwikpen) 100 Unit/Ml Inj, 100 UNIT SC, INJ use sliding scale 07/26/20 Furosemide (Furosemide) 40 Mg Tab, 20 MG PO DAILY for 30 Days 07/26/20 Tizanidine Hydrochloride (Zanaflex) 4 Mg Tab, 2 MG PO TID for muscle spasms, TAB 01/15/20 Glipizide (Glipizide) 5 Mg Tab, 10 MG PO BID for 30 Days, MG 01/15/20 Metformin Hydrochloride (Metformin Hcl) 500 Mg Tab, 1000 MG PO BID for 30 Days, MG 01/15/20 Hydrocodone-Acetaminophen (Jansen 10-325 mg) 1 Tab Tab, TID 05/03/19 Apixaban Base (ELIQUIS) 2.5 Mg Tab, 5 MG PO BID, TAB 04/17/19 Morphine Sulfate (Morphine Sulfate) 30 Mg Tab, 1 TAB PO BID, #60 TAB 04/17/19 Enalapril Maleate (VASOTEC TABLET) 10 Mg Tb, 1 TAB PO DAILY, #30 TAB 5 Refills 04/17/19 Current Medications Current Medications Medications (Trade) Dose Ordered Sig/Osmin Route PRN Reason Start Time Stop Time Status Last Admin Enalapril Maleate (Vasotec Tablet) 10 mg DAILY PO 02/14/24 10:00 02/14/24 11:21 Furosemide (Lasix Tablet) 40 mg DAILY PO 02/15/24 10:00 Carvedilol (Coreg Tablet) 6.25 mg Q12HR PO 02/14/24 10:00 02/14/24 11:20 Aspirin 162 mg DAILY PO 02/14/24 10:00 02/14/24 11:20 Atorvastatin Calcium (Lipitor) 10 mg HS PO 02/14/24 22:00 Albuterol (Ventolin Medneb) 2.5 mg Q6HPRN PRN NEB SHORTNESS OF BREATH 02/14/24 05:00 Cancel Diagnostic Test (Pha) (Accu-Chek Comfort Curve T) 1 strip IQ4HR 02/14/24 08:00 02/14/24 12:12 Insulin Human Regular (InsuLIN R) IQ4HR SC 02/14/24 08:00 02/14/24 12:23 Dextrose 50 ml UD PRN IV Blood Sugar LESS THAN 60 02/14/24 05:00 Ondansetron HCl (Zofran) 4 mg Q4HP PRN IV NAUSEA / VOMITING 02/14/24 05:00 Acetaminophen (Tylenol Tablet) 650 mg Q6HP PRN PO PAIN SCALE 1-3 OR TEMP>100.4 02/14/24 05:00 Nitroglycerin (Ntrostat Sublingual) 0.4 mg Q5MINP PRN SL FOR CHEST PAIN 02/14/24 05:00 Morphine Sulfate 2 mg Q30M PRN IV FOR CHEST PAIN 02/14/24 05:00 02/14/24 09:31 Review of Systems 10 pt ros otherwise negative Vital Signs Vital Signs Date Time Temp Pulse Resp B/P (MAP) Pulse Ox O2 Delivery O2 Flow Rate FiO2 02/14/24 13:25 78 16 99/64 (76) 99 02/14/24 09:13 99.0 2.0 28 99.0 02/14/24 07:25 Nasal Cannula* Physical Exam nad s1 s2 rrr ctab soft nt/nd no edema Labs/Diagnostic Data Labs Test 02/14/24 12:12 02/14/24 05:48 02/14/24 04:39 02/14/24 01:20 Range/Units POC Glucose 334 H 70-106 mg/dl Influenza Type A Antigen Negative Negative Influenza Type B Antigen Negative Negative SARS-CoV-2 Antigen (Rapid) Negative NEGATIVE Sodium Level 132 L 136-145 mmol/L Potassium Level 4.0 3.5-5.1 mmol/L Chloride Level 99 98-107 mmol/L Carbon Dioxide Level 27 20-31 mmol/L Anion Gap 6 5-15 Blood Urea Nitrogen 13 9-23 mg/dL Creatinine 1.08 H 0.550-1.02 mg/dL Glomerular Filtration Rate Calc 66 >90 mL/min BUN/Creatinine Ratio 12.0 10.0-20.0 Serum Glucose 522 *H 74-106 mg/dL Calcium Level 10.0 8.7-10.4 mg/dL Troponin I High Sensitivity 41 *H </=34 ng/L White Blood Count 8.5 4.4-10.8 10^3/uL Red Blood Count 3.71 L 4.0-5.20 10^6/uL Hemoglobin 9.0 L 12.2-16.2 g/dL Hematocrit 28.6 L 36.0-46.0 % Mean Corpuscular Volume 77.2 L 80.0-100.0 fL Mean Corpuscular Hemoglobin 24.1 L 28.0-32.0 pg Mean Corpuscular Hemoglobin Concent 31.3 L 32.0-36.0 g/dL Red Cell Distribution Width 15.9 H 11.8-14.3 % Platelet Count 374 140-450 10^3/uL Mean Platelet Volume 7.7 6.9-10.8 fL Neutrophils (%) (Auto) 68.6 37.0-80.0 % Lymphocytes (%) (Auto) 23.4 10.0-50.0 % Monocytes (%) (Auto) 5.2 0.0-12.0 % Eosinophils (%) (Auto) 2.2 0.0-7.0 % Basophils (%) (Auto) 0.6 0.0-2.0 % Neutrophils # (Auto) 5.8 1.6-8.6 10 ^3/uL Lymphocytes # (Auto) 2.0 0.4-5.4 10 ^3/uL Monocytes # (Auto) 0.4 0-1.3 10 ^3/uL Eosinophils # (Auto) 0.2 0-0.8 10 ^3/uL Basophils # (Auto) 0.1 0-0.2 10 ^3/uL Nucleated Red Blood Cells 0.1 % Total Bilirubin 0.2 0.2-1.0 mg/dL Aspartate Amino Transferase (AST) 13 13-40 U/L Alanine Aminotransferase (ALT) 12 7-40 U/L Alkaline Phosphatase 135 H 46-116 U/L B-Type Natriuretic Peptide 44.07 0-100 pg/mL Total Protein 6.9 5.7-8.2 g/dL Albumin 4.4 3.2-4.8 g/dL Beta HCG, Quantitative 0.1 L 1.5-4.2 mIU/mL Assessment obesity LVOT gradient r/o pulm htn tamika elevated BS , DM not controlled elevated troponin borderline Plan/Recommendation negative LHC 1 month ago cont BS control, insulin , needs outpt insulin likely defer to pcp for LVOT gradient, recommend IVF and avoid over diuresis consider cMR in future Plan discussed with: Patient SHAUN GUTHRIE MD Feb 14, 2024 14:43
--- NOTE | 2024-02-14 15:52 | DVHPN2 ---
Subjective Patient states that she has shortness of breath. Reviewed: Care Plan, H&P, Labs, Medications Changes from previous H/P or p: No Changes General: Per HPI Objective Vitals Vital Signs Date Time Temp Pulse Resp B/P (MAP) Pulse Ox O2 Delivery O2 Flow Rate FiO2 02/14/24 13:25 78 16 99/64 (76) 99 02/14/24 09:13 99.0 2.0 28 99.0 02/14/24 07:25 Nasal Cannula* Intake/Output Intake and Output 02/14/24 07:00 Intake Total 1000 ml Balance 1000 ml Intake IV Total 1000 ml General Appearance: Alert, Oriented X3, Cooperative, No acute distress HEENT: Atraumatic, PERRLA Lungs: Clear to auscultation, Normal air movement Cardiovascular: Normal S1, Normal S2 Abdomen: Normal bowel sounds, Soft, No tenderness, No hepatospenomegaly Musculoskeletal: Normal sensory function, Normal motor function Neuro: Normal gait, Normal speech Psych/Mental Status: Mental status NL, Mood NL Medications Current Medications Medications Dose Ordered Sig/Osmin Route Start Time Stop Time Status Last Admin Dose Admin Furosemide 40 mg DAILY PO 02/15/24 10:00 Aspirin 162 mg DAILY PO 02/14/24 10:00 02/14/24 11:20 162 MG Atorvastatin Calcium 10 mg HS PO 02/14/24 22:00 Albuterol 2.5 mg Q6HPRN PRN NEB 02/14/24 05:00 Cancel Diagnostic Test (Pha) 1 strip IQ4HR 02/14/24 08:00 02/14/24 12:12 1 STRIP Insulin Human Regular IQ4HR SC 02/14/24 08:00 02/14/24 12:23 12 UNITS Dextrose 50 ml UD PRN IV 02/14/24 05:00 Ondansetron HCl 4 mg Q4HP PRN IV 02/14/24 05:00 Acetaminophen 650 mg Q6HP PRN PO 02/14/24 05:00 Nitroglycerin 0.4 mg Q5MINP PRN SL 02/14/24 05:00 Morphine Sulfate 2 mg Q30M PRN IV 02/14/24 05:00 02/14/24 09:31 2 MG Carvedilol 3.125 mg Q12HR PO 02/14/24 22:00 Insulin Glargine 15 units HS SC 02/14/24 22:00 Laboratory Results Laboratory Tests 02/14/24 01:20 02/14/24 04:39 Chemistry Test 02/14/24 01:20 02/14/24 04:39 Albumin 4.4 g/dL (3.2-4.8) Calcium Level 9.7 mg/dL (8.7-10.4) 10.0 mg/dL (8.7-10.4) Total Protein 6.9 g/dL (5.7-8.2) Cardiac Markers Test 02/14/24 01:20 B-Type Natriuretic Peptide 44.07 pg/mL (0-100) LFT Test 02/14/24 01:20 Alanine Aminotransferase (ALT) 12 U/L (7-40) Alkaline Phosphatase 135 U/L (46-116) H Aspartate Amino Transferase (AST) 13 U/L (13-40) Total Bilirubin 0.2 mg/dL (0.2-1.0) Labs and/or images reviewed: Labs reviewed by me, Image(s) reviewed by me Assessment/Plan Assessment/Plan Impression: -hyperglycemia -NSTEMI type 2 -history of pulmonary embolism -morbid obesity -medication noncompliance -acute respiratory failure ruled out. O2 saturation 97% on room air. Plan: -long discussion was made with the patient regarding probable cause of shortness of breaths including pulmonary hypertension as well as possible HCM. -restart metformin, continue Lantus and regular insulin sliding scale -patient placed on room air from 2 L nasal cannula. Oxygen saturation 97%. Education given to the patient that she can actually have oxygen toxicity with using O2 supplementation inappropriately -check A1c -DC planning for a.m. when sugars have improved. Total time spent with patient discussing and formulating plan of care: 35 minutes. This medical document was created using an electronic medical record system with [employer] dictation system. Although this document has been carefully reviewed, there may still be some phonetic and typographical errors. These areas are purely typographical due to imperfections of the software programs, and do not reflect any compromise in the patient's medical care. Plan discussed with: Patient, Other (RN) My Orders Orders - HEMANTH TAVARES NP Procedure Category Date Status Time Carvedilol Tablet PHA 02/14/24 In Process (Coreg Tablet) 22:00 Insulin Lantus PHA 02/14/24 In Process (Glargine) (Lantus) 22:00 Date of Service: Feb 14, 2024 Billing Provider: HEMANTH TAVARES NP Common Visit Codes: [id number] INP/OBS CARE(HIGH) HEMANTH TAVARES NP Feb 14, 2024 15:52
[2024-02-14] MEDS: metFORMIN HYDROCHLORIDE 500 MG TAB PO SCH (18:00)
[2024-02-14 18:08] VITALS: O2SAT 95
[2024-02-14] MEDS ORDERED: ALPR0.254 PO (18:22)
[2024-02-14] MEDS ORDERED: CARV6.2551 PO (18:22)
[2024-02-14] MEDS ORDERED: TRAZ-228 PO (18:22)
[2024-02-14] MEDS ORDERED: ROSU5TAB5 PO (18:22)
[2024-02-14] MEDS ORDERED: ALPR0.5T7 PO (18:22)
[2024-02-14 20:00] VITALS: PULSE 95; RESP 18; O2SAT 95
[2024-02-14 21:00] VITALS: BP 104/58; PULSE 95; RESP 18; TEMP 98; O2SAT 95
[2024-02-14] MEDS: ACETAMINOPHEN 325 MG TAB PO PRN (21:40)
[2024-02-14] MEDS: ATORVASTATIN 20 MG TAB PO SCH (21:42)
[2024-02-14] MEDS: INSULIN LANTUS (GLARGINE) 1 /0.01ml (100units/ml) SC SCH (21:51)
[2024-02-15 01:00] VITALS: BP 124/86; PULSE 99; RESP 18; TEMP 98.5; O2SAT 96
[2024-02-15 05:00] VITALS: BP 123/69; PULSE 84; RESP 17; TEMP 98; O2SAT 95
[2024-02-15 07:30] LABS: Chloride 101 mmol/L (98-107); Potassium 3.4 mmol/L (3.5-5.1); Sodium 138 mmol/L (136-145)
[2024-02-15 07:31] LABS: Anion Gap 9 (5-15); Calcium 9.9 mg/dL (8.7-10.4); Carbon Dioxide 28 mmol/L (20-31)
[2024-02-15 07:36] LABS: BUN/Creatinine Ratio 18.1 (10.0-20.0); Blood Urea Nitrogen 15 mg/dL (9-23); Glucose 268 mg/dL (74-106)
[2024-02-15 07:39] LABS: Basophils # (auto) 0.1 10 ^3/uL (0-0.2); Basophils % (auto) 0.7 % (0.0-2.0); Eosinophils # (auto) 0.2 10 ^3/uL (0-0.8); Eosinophils % (auto) 2.1 % (0.0-7.0); Hematocrit 30.2 % (36.0-46.0); Hemoglobin 9.6 g/dL (12.2-16.2); Lymphocytes # (auto) 2.2 10 ^3/uL (0.4-5.4); Lymphocytes % (auto) 30.5 % (10.0-50.0); Mean Corpuscular Hemoglobin 24.1 pg (28.0-32.0); Mean Corpuscular Hgb Conc. 31.8 g/dL (32.0-36.0); Mean Corpuscular Volume 75.9 fL (80.0-100.0); Monocytes # (auto) 0.4 10 ^3/uL (0-1.3); Monocytes % (auto) 5.6 % (0.0-12.0); Neutrophils # (auto) 4.4 10 ^3/uL (1.6-8.6); Neutrophils % (auto) 61.1 % (37.0-80.0); Platelet Count (auto) 383 10^3/uL (140-450); Red Blood Cells 3.98 10^6/uL (4.0-5.20); Red Cell Distribution Width 15.9 % (11.8-14.3); White Blood Cell 7.3 10^3/uL (4.4-10.8)
[2024-02-15 08:00] VITALS: PULSE 90; RESP 18; O2SAT 95
[2024-02-15 09:00] VITALS: BP 100/63; PULSE 61; RESP 16; TEMP 97.9; O2SAT 98
[2024-02-15] MEDS: FUROSEMIDE 40 MG TAB PO SCH (09:43)
[2024-02-15] MEDS: METOCLOPRAMIDE HCL 5MG/ml INJ 2ml VIAL IV ONE (11:37)
[2024-02-15] MEDS: HYDROcodone-ACET 5/325MG TAB PO ONE (11:37)
[2024-02-15] MEDS: POTASSIUM EFFERVESENT TAB 25 MEQ PO ONE (11:37)
[2024-02-15] MEDS ORDERED: METF-929 PO (12:03)
[2024-02-15 13:00] VITALS: BP 148/72; PULSE 89; RESP 20; TEMP 97.9; O2SAT 99
--- NOTE | 2024-02-15 13:39 | DVHDS2 ---
Discharge Summary Date of Admission Feb 14, 2024 at 04:57 Date of Discharge: Feb 15, 2024 Admitting Diagnosis Acute respiratory distress Labs/Diagnostic Data: Laboratory Results Test 02/15/24 11:18 02/15/24 05:48 02/14/24 05:48 02/14/24 04:39 POC Glucose 356 mg/dl (70-106) White Blood Count 7.3 10^3/uL (4.4-10.8) Red Blood Count 3.98 10^6/uL (4.0-5.20) Hemoglobin 9.6 g/dL (12.2-16.2) Hematocrit 30.2 % (36.0-46.0) Mean Corpuscular Volume 75.9 fL (80.0-100.0) Mean Corpuscular Hemoglobin 24.1 pg (28.0-32.0) Mean Corpuscular Hemoglobin Concent 31.8 g/dL (32.0-36.0) Red Cell Distribution Width 15.9 % (11.8-14.3) Platelet Count 383 10^3/uL (140-450) Mean Platelet Volume 7.6 fL (6.9-10.8) Neutrophils (%) (Auto) 61.1 % (37.0-80.0) Lymphocytes (%) (Auto) 30.5 % (10.0-50.0) Monocytes (%) (Auto) 5.6 % (0.0-12.0) Eosinophils (%) (Auto) 2.1 % (0.0-7.0) Basophils (%) (Auto) 0.7 % (0.0-2.0) Neutrophils # (Auto) 4.4 10 ^3/uL (1.6-8.6) Lymphocytes # (Auto) 2.2 10 ^3/uL (0.4-5.4) Monocytes # (Auto) 0.4 10 ^3/uL (0-1.3) Eosinophils # (Auto) 0.2 10 ^3/uL (0-0.8) Basophils # (Auto) 0.1 10 ^3/uL (0-0.2) Nucleated Red Blood Cells 0.0 % Sodium Level 138 mmol/L (136-145) Potassium Level 3.4 mmol/L (3.5-5.1) Chloride Level 101 mmol/L (98-107) Carbon Dioxide Level 28 mmol/L (20-31) Anion Gap 9 (5-15) Blood Urea Nitrogen 15 mg/dL (9-23) Creatinine 0.83 mg/dL (0.550-1.02) Glomerular Filtration Rate Calc 90 mL/min (>90) BUN/Creatinine Ratio 18.1 (10.0-20.0) Serum Glucose 268 mg/dL (74-106) Calcium Level 9.9 mg/dL (8.7-10.4) Influenza Type A Antigen Negative (Negative) Influenza Type B Antigen Negative (Negative) SARS-CoV-2 Antigen (Rapid) Negative (NEGATIVE) Troponin I High Sensitivity 41 ng/L (</=34) Test 02/14/24 01:20 Hemoglobin A1c 11.7 % A1C (<5.7) Total Bilirubin 0.2 mg/dL (0.2-1.0) Aspartate Amino Transferase (AST) 13 U/L (13-40) Alanine Aminotransferase (ALT) 12 U/L (7-40) Alkaline Phosphatase 135 U/L (46-116) B-Type Natriuretic Peptide 44.07 pg/mL (0-100) Total Protein 6.9 g/dL (5.7-8.2) Albumin 4.4 g/dL (3.2-4.8) Beta HCG, Quantitative 0.1 mIU/mL (1.5-4.2) Other Laboratory Tests 02/15/24 05:48 Brief Hx & Hospital Course: HPI Comments 43-year-old female presents with a chief complaint of SOB x 4 days with associated chest pain. Patient states that her pain is localized to her sternal region, non-radiating, describes as tightness, and states that it is preventing her from taking a deep breath. Patient is a poor historian. States that she was on blood thinners in the past for pulmonary embolism. She was on Eliquis however this was discontinued in November. She reports associated cough, congestion, rhinorrhea, flu-like symptoms. Course of hospitalization: Patient had CT angiogram of the chest which was negative for pulmonary embolism or acute pathology. Patient had cardiology consultation given mild elevation troponin level of 43 which remained equivocal x3. Echocardiogram was performed. At this time patient has been cleared for discharge from Cardiology standpoint with recommendations for cardiac MRI to rule out HCM. Patient was weaned off of oxygen, with a saturation remaining 97% on room air. The patient was states that her PCP stopped all of her antidiabetic medications, with some contradiction found by reviewing her home medications which reveals that she has been placed on multiple different medications with the pharmacy database. Patient was hemoglobin A1c was found to be 11.7. Patient was blood sugars were found to be severely elevated, improved with long-acting insulin as well as regular insulin sliding scale. Long discussion was made with the patient to restart home antidiabetic medications tomorrow morning with metformin a 1000 mg p.o. b.i.d.. She was instructed to follow up with her PCP in one week and obtain referral to both pulmonology for evaluation of pulmonary hypertension as well as Cardiology for possible outpatient cardiac MRI. She verbalized understanding. All questions answered. Physical examination General: Alert and Oriented x3. No acute distress. Well-nourished. Obese Eyes: EOMI. Anicteric. HENT: Moist mucous membranes. Lungs: Clear to auscultation bilaterally. No accessory muscle use. Cardiovascular: Regular rate and rhythm. No murmur. No JVD. Abdomen: Soft, non-tender and non-distended. No palpable masses. Extremities: No edema. Non-tender. Skin: No rashes or lesions. Warm. Neurologic: No focal neurological deficits. CN II-XII grossly intact, but not individually tested. Psychiatric: Cooperative. Appropriate mood and affect. Total time spent with patient discussing and formulating plan of care: 35 minutes. This medical document was created using an electronic medical record system with [employer] dictation system. Although this document has been carefully reviewed, there may still be some phonetic and typographical errors. These areas are purely typographical due to imperfections of the software programs, and do not reflect any compromise in the patient's medical care. Consults/Reason for consult Cardiology: Troponin elevation Condition at Discharge: Guarded Final Diagnosis/Problems List Hyperglycemia Secondary Diagnosis: -NSTEMI type 2, probably secondary to uncontrolled diabetes mellitus -history of pulmonary embolism -morbid obesity -medication noncompliance -acute respiratory failure ruled out. O2 saturation 97% on room air. Discharge Disposition: Home Discharge Instruct/Medications Diet: Consistent carbohydrate Activity: No Restrictions, As Tolerated Follow Up/Referral: Dr. Boo in 1 week Medications: Metformin 1000mg po BID starting 02/16/24 0900 36 Discharge Statement: "Patient was advised to return to the ER or call 911 if any headaches, dizziness, shortness of breath, chest pain, abdominal pain, bleeding, fevers, or worsening of medical condition. Patient was counseled about treatment plan, medications, possible side effects, patientverbalized understanding. All questions were answered to the best of my ability. This discharge took greater then 30 minutes in planning, reviewing documentation, counseling the patient, and discussing with other team members." ASSESSMENT ASSESSMENT Assessment Hyperglycemia Date of Service: Feb 15, 2024 Billing Provider: HEMANTH TAVARES NP Common Visit Codes: 85169-SMN/OBS DISCH DAY >30min HEMANTH TAVARES NP Feb 15, 2024 13:39
== END 2024-02-15 14:05 | disposition home or self-care (01) | DRG 469 ==
LOC: ER 00:47 → TELE 04:57 → TELE-E-ADS 18:07
PROVIDERS: ADMIT Nurse Practitioner; ATTEND Nurse Practitioner Acute Care
DX: N17.0 Acute kidney failure with tubular necrosis (principal); I21.A1 Myocardial infarction type 2; I27.20 Pulmonary hypertension, unspecified; E11.65 Type 2 diabetes mellitus with hyperglycemia; G47.33 Obstructive sleep apnea (adult) (pediatric); Z20.822 Contact with and (suspected) exposure to COVID-19; E66.01 Morbid (severe) obesity due to excess calories; I10 Essential (primary) hypertension; J44.89 Other specified chronic obstructive pulmonary disease; Z68.42 Body mass index [BMI] 45.0-49.9, adult; Z80.0 Family history of malignant neoplasm of digestive organs; Z82.0 Family history of epilepsy and other diseases of the nervous system; Z82.49 Family history of ischemic heart disease and other diseases of the circulatory system; Z83.3 Family history of diabetes mellitus; Z91.199 Patient's noncompliance with other medical treatment and regimen due to unspecified reason; Z86.711 Personal history of pulmonary embolism; Z79.4 Long term (current) use of insulin
CPT/HCPCS: 36415; 71045; 71275; 80048; 80053; 82962; 83036; 83880; 84484; 84702; 85025; 87426; 87804; 93005; 93306; 96361; 96374; G0378; J1815